=== PATIENT | female | born 2000 | race Caucasian/White ===

== ENCOUNTER 2019-11-26 15:23 | Emergency (ER) | payer BC, SELFPAY ==
[2019-11-26 15:43] VITALS: BP 114/78; PULSE 82; RESP 21; TEMP 36.9; O2SAT 98; BMI 36.1
--- NOTE | 2019-11-26 15:51 | HMH.EDUTC ---
[facility] [place] Disposition Clinical Impression: Sinusitis Qualifiers: Sinusitis location: unspecified location Chronicity: acute Recurrence: non-recurrent Qualified Code(s): J01.90 - Acute sinusitis, unspecified Disposition: Home, Self-Care Condition on Discharge: Good Instructions: Sinusitis Additional Instructions: Drink plenty of fluids. Take tylenol or ibuprofen for pain or fever. Take the medications as directed. Follow up with your regular doctor. GO TO THE ER FOR ANY WORSENING SYMPTOMS Prescriptions: Brompheniramine/Pseudoephed/Dm [Bromfed Dm Cough Syrup] 5 ml PO Q6HP PRN #240 syrup PRN Reason: Cough Transmission Status: Received by [facility] Azithromycin [Z-Allen 250mg Tab*] 250 mg PO UD DOSE PK #6 tab Transmission Status: Received by [facility] Referrals: Eda Vincent [Primary Care Provider] - Forms: Work/School Release Time of Disposition: 15:58 Medical Decision Making - Medical Records Medical records reviewed: No: I reviewed the patient's medical records. - Kwame Inquiry Pt receiving controlled substance: No Vital Signs: 11/26/19 15:43 11/26/19 16:05 Temperature 98.4 F 98.4 F Temperature Source Oral Pulse Rate 82 Pulse Rate [Left Brachial] 82 Respiratory Rate 21 21 Blood Pressure 114/78 Blood Pressure [Left Arm] 114/78 Blood Pressure Mean [Left Arm] 90 Blood Pressure Source [Left Arm] Automatic Cuff Blood Pressure Position [Left Arm] Sitting 02 Sat by Pulse Oximetry 98 Oxygen Delivery Method Room Air - Lab Data Lab results reviewed: Yes: I reviewed the patient's lab results. Lab Results 11/26/19 15:48: Influenza Type A Ag Negative, Influenza Type B Ag Negative 11/26/19 15:48: Strep Scn Rapid Clinic Negative Orders (Tests/Meds): ORDERS Category Date Time Status Strep Screen Confirmation Stat Micro 11/26/19 15:48 Received [facility] [place] HPI - General Stated complaint: sinus pressure Time Seen by Provider: 11/26/19 15:51 Mode of Arrival: Ambulatory Source of Information: Patient Limitations: No Limitations Description of Symptoms (Recalled from Triage Doc. by RN): PATIENT C/O COUGH WITH MUCOUS, SORE THROAT, HEADACHE, AND SINUS PAIN SINCE YESTERDAY; DENIES FEVER AND ANY KNOWN CONTACT WITH COVID HEENT Symptoms (Recalled from RN notes): Yes Resp Symptoms (Recalled from RN notes): Yes Skin Symptoms (Recalled from RN notes): No MS Symptoms (Recalled from RN notes): No Functional Status (Recalled from RN notes): WNL - History of Present Illness Provider Complaint: She c/o 2 days of worsening sinus congestion. She denies any fever. Her sinus drainage made her cough, so her work sent her here. - Related Data Home Medications Medication Instructions Recorded Confirmed Fluoxetine HCl 10 mg PO DAILY 11/26/19 11/26/19 Fluoxetine HCl 20 mg PO DAILY 11/26/19 11/26/19 Previous Rx's Medication Instructions Recorded Azithromycin [Z-Allen 250mg Tab*] 250 mg PO UD DOSE PK #6 tab 11/26/19 Brompheniramine/Pseudoephed/Dm 5 ml PO Q6HP PRN #240 syrup 11/26/19 [Bromfed Dm Cough Syrup] Allergies Allergy/AdvReac Type Severity Reaction Status Date / Time cefdinir [CEFDINIR] Allergy Intermediate Verified 11/26/19 15:48 - Worker's Comp Is this a Worker's Comp case?: No [facility] History - Hepatitis A Screen Drug use history?: No High risk sexual behaviors?: No History of sexually transmitted infection?: No Currently employed?: No Childcare worker?: No Do you have indoor plumbing?: Yes Do you have electricity?: Yes Attestation statement:: This patient has been screened for Hepatitis A risk factors. I have reviewed the patient's past medical history: Yes - Social History Alcohol Intake: current Occupational Status: employed ROS Obtained: Yes All systems reviewed & no additional complaints - Constitutional Constitutional: Denies chills, Denies fever(s), Reports poor appetite, Reports malaise - Eyes Eyes: Denies eye discharge - E
[2019-11-26 15:58] LABS: UTC Influenza A Antigen Negative (Negative); UTC Influenza B Antigen Negative (Negative); UTC Strep Screen (Rapid) Negative (Negative)
[2019-11-26 16:05] VITALS: BP 114/78; PULSE 82; RESP 21; TEMP 36.9; O2SAT 98
== END 2019-11-26 16:06 | disposition home or self-care (01) ==
PROVIDERS: Emergency Provider Nurse Practitioner Family; PCP Nurse Practitioner Family
DX: J01.90 Acute sinusitis, unspecified (principal)
CPT/HCPCS: 87804; 87880; 99202

== ENCOUNTER 2019-12-15 15:25 | Emergency (ER) | payer BC, SELFPAY ==
[2019-12-15 15:44] VITALS: BP 122/73; PULSE 66; RESP 21; TEMP 36.7; O2SAT 100; BMI 35.5
--- NOTE | 2019-12-15 15:47 | HMH.EDUTC ---
[facility] [place] Clinical Impression: Diarrhea Qualifiers: Diarrhea type: unspecified type Qualified Code(s): R19.7 - Diarrhea, unspecified Disposition: Home, Self-Care Condition on Discharge: Good Instructions: Diarrhea Additional Instructions: Return a stool sample so it can be checked for different infections. Follow up with your regular doctor. Drink plenty of fluids, water or gatorade would be best. GO TO THE ER FOR ANY WORSENING SYMPTOMS OR CONCERNS Referrals: Liliya Zhou APRN [Primary Care Provider] - Forms: Work/School Release Time of Disposition: 16:17 Medical Decision Making - Medical Records Medical records reviewed: No: I reviewed the patient's medical records. - Kwame Inquiry Pt receiving controlled substance: No Vital Signs: 12/15/19 15:44 12/15/19 16:21 Temperature 98.1 F 98.1 F Temperature Source Oral Pulse Rate 66 Pulse Rate [Left Brachial] 66 Respiratory Rate 21 21 Blood Pressure 122/73 Blood Pressure [Left Arm] 122/73 Blood Pressure Mean [Left Arm] 89 Blood Pressure Source [Left Arm] Automatic Cuff Blood Pressure Position [Left Arm] Sitting 02 Sat by Pulse Oximetry 100 Oxygen Delivery Method Room Air - Radiology Data #1 Image(s): Abdomen Image Reviewed: Yes I reviewed the patient's radiology image, Yes I have reviewed radiologist's interpretation Preliminary Findings: Normal/NAD PROCEDURE: XR KUB CLINICAL INDICATION: constipation, abdominal pain COMPARISON: No exams were available for comparison FINDINGS: Gas pattern-The bowel gas pattern is unremarkable. No obvious obstruction. Calcifications-No abnormal calcifications are evident. No obvious renal or ureteral calculi. Bones-No acute bony anomalies evident. IMPRESSION: Negative KUB Dictated by: Luis Smith MD 12/15/2019 16:28 Electronically signed by Luis Smith MD in [place] 12/15/2019 16:28 [facility] [place] HPI - General Stated complaint: diarrhea Time Seen by Provider: 12/15/19 15:47 - History of Present Illness Provider Complaint: She c/o diarrhea for the past 3 days. She was at work and had to keep going to the bathroom. She was constipated around 5 days ago and she was prescribed mag citrate by [facility]. She states that she drunk the mag citrate and then started having diarrhea. - Related Data Home Medications Medication Instructions Recorded Confirmed Fluoxetine HCl 20 mg PO DAILY 11/26/19 12/15/19 norethindrone-e.estradioL-iron 1 tab PO DAILY 12/15/19 12/15/19 [Junel Fe 1 mg-20 Mcg Tablet] Allergies Allergy/AdvReac Type Severity Reaction Status Date / Time cefdinir [CEFDINIR] Allergy Intermediate Verified 11/26/19 15:48 [facility] History - Hepatitis A Screen Attestation statement:: This patient has been screened for Hepatitis A risk factors. I have reviewed the patient's past medical history: Yes - Social History Alcohol Intake: current Occupational Status: employed ROS Obtained: No All systems reviewed & no additional complaints - Constitutional Constitutional: Denies chills, Denies fever(s), Denies poor appetite, Denies malaise - Eyes Eyes: Denies eye discharge - ENT Ears, Nose, Mouth, and Throat: Denies sore throat - Cardiovascular Cardiovascular: Denies chest pain - Respiratory Respiratory: No chest congestion, No cough - Gastrointestinal Gastrointestingal: Denies: as per HPI Physical Exam - General General appearance: alert, in no apparent distress - Head Head exam: atraumatic, normocephalic, normal inspection - Eye Eye exam: Present: normal appearance, PERRL, EOMI - ENT ENT exam: Present: normal exam, normal oropharynx, mucous membranes moist, TM's normal bilaterally, normal external ear exam - Neck Neck exam: Present: normal inspection, full ROM, trachea midline. Absent: meningismus, lymphadenopathy - Chest Chest inspection: Present: normal inspection, symmetric chest wall rise. Absen
--- NOTE | 2019-12-15 15:52 | XR_ITS ---
PROCEDURE: XR KUB CLINICAL INDICATION: constipation, abdominal pain COMPARISON: No exams were available for comparison FINDINGS: Gas pattern-The bowel gas pattern is unremarkable. No obvious obstruction. Calcifications-No abnormal calcifications are evident. No obvious renal or ureteral calculi. Bones-No acute bony anomalies evident. IMPRESSION: Negative KUB Dictated by: Luis Smith MD 12/15/2019 16:28 Electronically signed by Luis Smith MD in [place] 12/15/2019 16:28
[2019-12-15 16:21] VITALS: BP 122/73; PULSE 66; RESP 21; TEMP 36.7; O2SAT 100
== END 2019-12-15 16:22 | disposition home or self-care (01) ==
PROVIDERS: Emergency Provider Nurse Practitioner Family; PCP Nurse Practitioner Family
DX: R19.7 Diarrhea, unspecified (principal)
CPT/HCPCS: 74018; 99201

== ENCOUNTER 2020-01-24 18:47 | Emergency (ER) | payer BC, SELFPAY ==
[2020-01-24 19:04] VITALS: BP 136/88; PULSE 95; RESP 20; TEMP 36.6; O2SAT 100; BMI 34.0
--- NOTE | 2020-01-24 19:22 | HMH.EDUTC ---
[facility] [place] Disposition Clinical Impression: Sciatica Qualifiers: Laterality: left Qualified Code(s): M54.32 - Sciatica, left side Disposition: Home, Self-Care Condition on Discharge: Good Instructions: Sciatica (Alternative Therapy), Sciatica, DI for Sciatica, Methocarbamol, Etodolac Additional Instructions: Take medication as prescribed *Etodolac every 6 hours with meal as needed for pain/inflammation *Remember you had a Toradol shot in the clinic today, which is similar to Motrin and Etodolac do not take any of these until tomorrow *Not additional anti-inflammatory like motrin, aleve, advil Ibuprofen with the above amount of Etodolac. You can still take Tylenol every 4 hours as needed if you need something else for pain *Ice 20 minutes every 2 hours for the first 48 hours after the initial injury followed by moist heat every 20 minutes 3-4 times a day to affected area *Muscle relaxer as prescribed as needed for muscle spasms but remember, it WILL cause drowsiness You cannot take it and drive, operate machinery or care for small children. *Keep this area active, no movement leads to more stiffness, However take it easy and avoid heavy lifting pushing or pulling *Follow up with you family doctor if no improvement for further treatment Return if needed Straight to ER if any life threatening symptoms Prescriptions: Etodolac [Etodolac 200mg Cap*] 200 mg PO Q8H PRN #12 cap PRN Reason: Moderate Pain Transmission Status: Received by [id number] methocarbamoL [Methocarbamol 500mg Tablet] 500 mg PO BID PRN #10 tab PRN Reason: Muscle Spasm Transmission Status: Received by [id number] Referrals: Liliya Zhou APRN [Primary Care Provider] - As needed Forms: Work/School Release Time of Disposition: 19:59 Medical Decision Making - Kwame Inquiry Pt receiving controlled substance: No Kwame was queried for this patient: No Vital Signs: 01/24/20 19:04 Temperature 97.9 F Temperature Source Oral Pulse Rate [Right Brachial] 95 H Respiratory Rate 20 Blood Pressure [Right Arm] 136/88 Blood Pressure Mean [Right Arm] 104 Blood Pressure Source [Right Arm] Automatic Cuff Blood Pressure Position [Right Arm] Sitting 02 Sat by Pulse Oximetry 100 Oxygen Delivery Method Room Air Orders (Tests/Meds): ED MEDICATIONS Discontinued Medications Generic Name Dose Route Start Last Admin Trade Name Fernie PRN Reason Stop Dose Admin Ketorolac Tromethamine 60 mg 01/24/20 19:24 01/24/20 19:40 Toradol 60mg/2ml Vial IM 01/24/20 19:25 60 mg ONCE ONE Administration Methylprednisolone Sodium Succinate 125 mg 01/24/20 19:24 01/24/20 19:40 Solu-Medrol 125mg/2ml Vial IM 01/24/20 19:25 125 mg ONCE ONE Administration - Reevaluation(s) Time: 19:28 Reevaluation #1: Recommended urine and patient declined/refused states that she is not and recently took test and just got off her monthly [facility] [place] HPI - General Stated complaint: Pain in hip Time Seen by Provider: 01/24/20 19:24 Mode of Arrival: Ambulatory Source of Information: Patient Limitations: No Limitations Description of Symptoms (Recalled from Triage Doc. by RN): PATIENT C/O PAIN TO LEFT HIP THAT RADIATES TO HER KNEE X 2 WEEKS. SHE STATES THE PAIN IS CONSTANT, BUT IS WORSE WITH LYING DOWN AND STANDING. NO KNOWN INJURY HEENT Symptoms (Recalled from RN notes): No Resp Symptoms (Recalled from RN notes): No Skin Symptoms (Recalled from RN notes): No MS Symptoms (Recalled from RN notes): Yes Functional Status (Recalled from RN notes): WNL - History of Present Illness Provider Complaint: Patient states that she thought she pulled a muscle in her lower back/left hip about 2 weeks ago and was having pain at times with walking and lifting her leg State that it has continued to get worse now radiating throught left buttock area into left upper leg States that she hasnt done anything that she is aware of to hurt it but wanted t
[2020-01-24 19:52] VITALS: BP 136/88; PULSE 95; RESP 20; TEMP 36.6; O2SAT 100
== END 2020-01-24 19:55 | disposition home or self-care (01) ==
PROVIDERS: Emergency Provider Nurse Practitioner; PCP Nurse Practitioner Family
DX: M54.32 Sciatica, left side (principal)
CPT/HCPCS: 96372; 99201

== ENCOUNTER 2020-02-23 15:03 | Emergency (ER) | payer BC, SELFPAY ==
--- NOTE | 2020-02-23 15:21 | HMH.EDUTC ---
[facility] [place] Disposition Clinical Impression: Sinusitis Qualifiers: Sinusitis location: unspecified location Chronicity: acute Recurrence: non-recurrent Qualified Code(s): J01.90 - Acute sinusitis, unspecified Disposition: Home, Self-Care Condition on Discharge: Good Instructions: Sinusitis, DI for Sinusitis Additional Instructions: Drink plenty of fluids. Take tylenol or ibuprofen for pain or fever. Take the medications as directed. Follow up with your regular doctor. GO TO THE ER FOR ANY WORSENING SYMPTOMS Prescriptions: methylPREDNISolone [Medrol] 4 mg PO DIRECTED 6 Days #21 tab.ds.pk Transmission Status: Received by [facility] Benzonatate [Tessalon Perle 100mg Cap] 100 mg PO TIDP PRN #30 cap PRN Reason: Cough Transmission Status: Received by [facility] Azithromycin [Z-Allen 250mg Tab*] 250 mg PO UD DOSE PK #6 tab Transmission Status: Received by [facility] Referrals: Liliya Zhou APRN [Primary Care Provider] - Forms: Work/School Release Time of Disposition: 15:45 Medical Decision Making - Medical Records Medical records reviewed: No: I reviewed the patient's medical records. - Kwame Inquiry Pt receiving controlled substance: No Vital Signs: 02/23/20 15:22 02/23/20 15:45 Temperature 97.8 F 97.8 F Temperature Source Oral Pulse Rate 87 Pulse Rate [Left Brachial] 87 Respiratory Rate 19 19 Blood Pressure 112/76 Blood Pressure [Left Arm] 112/76 Blood Pressure Mean [Left Arm] 88 Blood Pressure Source [Left Arm] Automatic Cuff Blood Pressure Position [Left Arm] Sitting 02 Sat by Pulse Oximetry 100 Oxygen Delivery Method Room Air Orders (Tests/Meds): ORDERS Category Date Time Status SARS-CoV-2, TIFFANI Stat Lab 02/23/20 15:40 Received [facility] [place] HPI - General Stated complaint: SOB,Sinus Time Seen by Provider: 02/23/20 15:21 - History of Present Illness Provider Complaint: She c/o 2 days of sinus congestion, chest congestion, and cough. 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 - Related Data Home Medications Medication Instructions Recorded Confirmed Fluoxetine HCl 20 mg PO DAILY 11/26/19 01/24/20 norethindrone-e.estradioL-iron 1 tab PO DAILY 12/15/19 01/24/20 [Junel Fe 1 mg-20 Mcg Tablet] hydrOXYzine pamoate [Vistaril 25mg 25 mg PO Q8H PRN 01/24/20 01/24/20 capsule] Previous Rx's Medication Instructions Recorded Etodolac [Etodolac 200mg Cap*] 200 mg PO Q8H PRN #12 cap 01/24/20 methocarbamoL [Methocarbamol 500mg 500 mg PO BID PRN #10 tab 01/24/20 Tablet] Azithromycin [Z-Allen 250mg Tab*] 250 mg PO UD DOSE PK #6 tab 02/23/20 Benzonatate [Tessalon Perle 100mg 100 mg PO TIDP PRN #30 cap 02/23/20 Cap] methylPREDNISolone [Medrol] 4 mg PO DIRECTED 6 Days #21 02/23/20 tab.ds.pk Allergies Allergy/AdvReac Type Severity Reaction Status Date / Time cefdinir [CEFDINIR] Allergy Intermediate Verified 11/26/19 15:48 [facility] History - Hepatitis A Screen Attestation statement:: This patient has been screened for Hepatitis A risk factors. I have reviewed the patient's past medical history: Yes - Social History Alcohol Intake: current Occupational Status: other ROS Obtained: Yes All systems reviewed & no additional complaints - Constitutional Constitutional: Denies chills, Denies fever(s), Reports poor appetite, Reports malaise - Eyes Eyes: Denies eye discharge - ENT Ears, Nose, Mouth, and Throat: Reports as per HPI - Cardiovascular Cardiovascular: Denies chest pain - Respiratory Respiratory: No chest congestion, Yes cough, No dyspnea, No coughing up blood, No stridor, No wheezing Physical Exam - General General appearance: alert, in no apparent distress - Head Head exam: atraumatic, normocephalic, normal inspection - Eye Eye exam: Present: normal appearance, PERRL, EOMI - ENT ENT exam: Present: normal exam, normal oropharynx, mucous
[2020-02-23 15:22] VITALS: BP 112/76; PULSE 87; RESP 19; TEMP 36.6; O2SAT 100; BMI 33.6
[2020-02-23 15:45] VITALS: BP 112/76; PULSE 87; RESP 19; TEMP 36.6; O2SAT 100
[2020-02-25 14:27] LABS: Covid-19 Nasal PCR Sendout Lex Not Detected
== END 2020-02-23 15:49 | disposition home or self-care (01) ==
PROVIDERS: Emergency Provider Nurse Practitioner Family; PCP Nurse Practitioner Family
DX: J01.90 Acute sinusitis, unspecified (principal); Z20.828 Contact with and (suspected) exposure to other viral communicable diseases
CPT/HCPCS: 99201; U0004

== ENCOUNTER 2020-04-18 20:52 | Emergency (ER) | payer BC, SELFPAY ==
[2020-04-18 21:29] VITALS: BP 128/76; PULSE 71; RESP 17; TEMP 36.8; O2SAT 99; BMI 33.2
--- NOTE | 2020-04-18 21:33 | HMH.EDUTC ---
[facility] [place] Disposition Clinical Impression: Exposure to COVID-19 virus Sinusitis Qualifiers: Sinusitis location: unspecified location Chronicity: acute Recurrence: non-recurrent Qualified Code(s): J01.90 - Acute sinusitis, unspecified Disposition: Home, Self-Care Condition on Discharge: Good Instructions: Sinusitis, DI for Sinusitis, Preventing the Spread of Coronavirus Discharge Instructions Additional Instructions: Drink plenty of fluids. Take tylenol or ibuprofen for pain or fever. Take the medications as directed. Follow up with your regular doctor. GO TO THE ER FOR ANY WORSENING SYMPTOMS FOLLOW THE DIRECTIONS ON THE COVID-19 HAND OUT THAT WE GAVE YOU REGARDING SELF-ISOLATION UNTIL YOU KNOW YOUR COVID-19 RESULTS Referrals: Liliya Zhou APRN [Primary Care Provider] - Forms: Work/School Release Time of Disposition: 21:41 Medical Decision Making - Medical Records Medical records reviewed: No: I reviewed the patient's medical records. - Kwame Inquiry Pt receiving controlled substance: No Vital Signs: 04/18/20 21:29 04/18/20 21:45 Temperature 98.3 F 98.3 F Temperature Source Oral Pulse Rate 71 Pulse Rate [Left] 71 Respiratory Rate 17 17 Blood Pressure 128/76 Blood Pressure [Right Arm] 128/76 Blood Pressure Mean [Right Arm] 93 Blood Pressure Source [Right Arm] Automatic Cuff Blood Pressure Position [Right Arm] Sitting 02 Sat by Pulse Oximetry 99 Oxygen Delivery Method Room Air - Lab Data Lab results reviewed: Yes: I reviewed the patient's lab results. Orders (Tests/Meds): ORDERS Category Date Time Status Covid-19 Nasal PCR Sendout David Routine Lab 04/18/20 21:10 Received [facility] [place] HPI - General Stated complaint: sore throat, wants COVID Testing Time Seen by Provider: 04/18/20 21:33 - History of Present Illness Provider Complaint: She states that both her mother and father have COVID-19 at this time. She was around them both a few days ago before they developed symptoms. She denies any complaints except that she has had sinus pressure and drainage for the past 2 weeks or so. - Related Data Home Medications Medication Instructions Recorded Confirmed norethindrone-e.estradioL-iron 1 tab PO DAILY 12/15/19 01/24/20 [Junel Fe 1 mg-20 Mcg Tablet] hydrOXYzine pamoate [Vistaril 25mg 25 mg PO Q8H PRN 01/24/20 01/24/20 capsule] Fluoxetine HCl 30 mg PO DAILY 04/18/20 04/18/20 Allergies Allergy/AdvReac Type Severity Reaction Status Date / Time cefdinir [CEFDINIR] Allergy Intermediate Verified 11/26/19 15:48 amoxicillin Allergy Verified 04/18/20 21:38 [facility] History - Hepatitis A Screen Attestation statement:: This patient has been screened for Hepatitis A risk factors. I have reviewed the patient's past medical history: Yes - Social History Alcohol Intake: never Occupational Status: other ROS Obtained: Yes All systems reviewed & no additional complaints - Constitutional Constitutional: Reports chills, Reports fever(s), Reports poor appetite, Reports malaise - Eyes Eyes: Denies eye discharge - ENT Ears, Nose, Mouth, and Throat: Denies sore throat - Cardiovascular Cardiovascular: Denies chest pain - Respiratory Respiratory: Yes chest congestion, Yes cough Physical Exam - General General appearance: alert, in no apparent distress - Head Head exam: atraumatic, normocephalic, normal inspection - Eye Eye exam: Present: normal appearance, PERRL, EOMI - ENT ENT exam: Present: normal exam, normal oropharynx, mucous membranes moist, TM's normal bilaterally, normal external ear exam - Neck Neck exam: Present: normal inspection, full ROM, trachea midline. Absent: meningismus, lymphadenopathy - Chest Chest inspection: Present: normal inspection, symmetric chest wall rise. Absent: tenderness - Respiratory Respiratory exam: Present: normal lung sounds bilaterally. Absent: respiratory distress - Cardiovascular Ca
[2020-04-18 21:45] VITALS: BP 128/76; PULSE 71; RESP 17; TEMP 36.8; O2SAT 99
[2020-04-20 13:27] LABS: Covid-19 Nasal PCR Sendout Lex NOT DETECTED
== END 2020-04-18 21:46 | disposition home or self-care (01) ==
PROVIDERS: Emergency Provider Nurse Practitioner Family; PCP Nurse Practitioner Family
DX: Z20.828 Contact with and (suspected) exposure to other viral communicable diseases (principal); J01.90 Acute sinusitis, unspecified
CPT/HCPCS: 99201; U0004

== ENCOUNTER 2020-05-22 13:30 | Emergency (ER) | payer BC, SELFPAY ==
[2020-05-22 13:43] VITALS: BP 115/61; PULSE 80; RESP 21; TEMP 36.9; O2SAT 99; BMI 33.0
[2020-05-22 13:57] LABS: UTC Strep Screen (Rapid) Negative (Negative)
[2020-05-22 13:57] LABS: UTC Pregnancy Test, Urine Negative (Negative)
--- NOTE | 2020-05-22 14:20 | HMH.EDUTC ---
[facility] [place] Disposition Clinical Impression: Exposure to COVID-19 virus Pharyngitis Qualifiers: Pharyngitis/tonsillitis etiology: unspecified etiology Qualified Code(s): J02.9 - Acute pharyngitis, unspecified Disposition: Home, Self-Care Condition on Discharge: Good Instructions: DI for Pharyngitis/Tonsillopharyngitis -- Adult, Preventing the Spread of Coronavirus Discharge Instructions Additional Instructions: Drink plenty of fluids. Take tylenol or ibuprofen for pain or fever. Take the medications as directed. Follow up with your regular doctor. GO TO THE ER FOR ANY WORSENING SYMPTOMS Prescriptions: Brompheniramine/Pseudoephed/Dm [Bromfed Dm Cough Syrup] 5 ml PO Q6HP PRN #240 syrup PRN Reason: Cough Transmission Status: Received by [facility] Ondansetron [Zofran 4mg ODT] 4 mg PO Q8HP PRN #10 tab.rapdis PRN Reason: Nausea Transmission Status: Received by [facility] Azithromycin [Z-Allen 250mg Tab*] 250 mg PO UD DOSE PK #6 tab Transmission Status: Received by [facility] Referrals: Liliya Zhou APRN [Primary Care Provider] - Forms: Work/School Release Time of Disposition: 14:24 Medical Decision Making - Medical Records Medical records reviewed: No: I reviewed the patient's medical records. - Kwame Inquiry Pt receiving controlled substance: No Vital Signs: 05/22/20 13:43 05/22/20 14:33 Temperature 98.4 F 98.4 F Temperature Source Oral Pulse Rate 80 Pulse Rate [Right Brachial] 80 Respiratory Rate 21 21 Blood Pressure 115/61 Blood Pressure [Right Arm] 115/61 Blood Pressure Mean [Right Arm] 79 Blood Pressure Source [Right Arm] Automatic Cuff Blood Pressure Position [Right Arm] Sitting 02 Sat by Pulse Oximetry 99 Oxygen Delivery Method Room Air - Lab Data Lab results reviewed: Yes: I reviewed the patient's lab results. Lab Results 05/22/20 13:39: Strep Scn Rapid Clinic Negative 05/22/20 13:48: [facility]st Clinic Negative Orders (Tests/Meds): ORDERS Category Date Time Status Strep Screen Confirmation Stat Micro 05/22/20 13:39 Received [facility] [place] HPI - General Stated complaint: sinus pain, sore throat, vomiting Time Seen by Provider: 05/22/20 13:50 Mode of Arrival: Ambulatory Source of Information: Patient Limitations: No Limitations Description of Symptoms (Recalled from Triage Doc. by RN): PATIENT C/O SORE THROAT, CONGESTION, AND VOMITING SINCE THIS MORNING HEENT Symptoms (Recalled from RN notes): Yes Resp Symptoms (Recalled from RN notes): No Skin Symptoms (Recalled from RN notes): No MS Symptoms (Recalled from RN notes): No Functional Status (Recalled from RN notes): WNL - History of Present Illness Provider Complaint: She c/o 3 days of sinus congestion, sore throat and cough. Her mother has covid at this time, so she has been exposed. - Related Data Home Medications Medication Instructions Recorded Confirmed norethindrone-e.estradioL-iron 1 tab PO DAILY 12/15/19 05/22/20 [Junel Fe 1 mg-20 Mcg Tablet] hydrOXYzine pamoate [Vistaril 25mg 25 mg PO Q8H PRN 01/24/20 05/22/20 capsule] Fluoxetine HCl 30 mg PO DAILY 04/18/20 05/22/20 Previous Rx's Medication Instructions Recorded Azithromycin [Z-Allen 250mg Tab*] 250 mg PO UD DOSE PK #6 tab 05/22/20 Brompheniramine/Pseudoephed/Dm 5 ml PO Q6HP PRN #240 syrup 05/22/20 [Bromfed Dm Cough Syrup] Ondansetron [Zofran 4mg ODT] 4 mg PO Q8HP PRN #10 tab.rapdis 05/22/20 Allergies Allergy/AdvReac Type Severity Reaction Status Date / Time cefdinir [CEFDINIR] Allergy Intermediate Verified 11/26/19 15:48 amoxicillin Allergy Verified 04/18/20 21:38 - Worker's Comp Is this a Worker's Comp case?: No [facility] History - Hepatitis A Screen Drug use history?: No High risk sexual behaviors?: No History of sexually transmitted infection?: No Currently employed?: No Childcare worker?: No Do you have indoor plumbing?: Yes Do you have electricity?: Yes Attestatio
[2020-05-22 14:33] VITALS: BP 115/61; PULSE 80; RESP 21; TEMP 36.9; O2SAT 99
== END 2020-05-22 14:38 | disposition home or self-care (01) ==
PROVIDERS: Emergency Provider Nurse Practitioner Family; PCP Nurse Practitioner Family
DX: Z20.828 Contact with and (suspected) exposure to other viral communicable diseases (principal); J02.9 Acute pharyngitis, unspecified; F17.210 Nicotine dependence, cigarettes, uncomplicated; Z88.1 Allergy status to other antibiotic agents
CPT/HCPCS: 81025; 87880; 99202; U0003

== ENCOUNTER 2020-05-26 10:12 | Emergency (ER) | payer BC, SELFPAY ==
[2020-05-26 10:44] VITALS: BP 131/78; PULSE 100; RESP 14; TEMP 37; O2SAT 99; BMI 33.0
[2020-05-26 10:54] LABS: UTC Strep Screen (Rapid) Negative (Negative)
--- NOTE | 2020-05-26 11:03 | HMH.EDUTC ---
[facility] [place] Dis[place] Clinical Impression: Upper respiratory infection, viral Disposition: Home, Self-Care Condition on Discharge: Good Instructions: DI for Viral Upper Respiratory Infection -- Adult Additional Instructions: No sign of a bacterial infection. Likely viral. Viruses can take 7-14 days to run their course. Nasal saline and bulb syringe or nose Varsha to remove nasal drainage to help with nasal congestion. Hard to eat, drink, sleep with nasal congestion so important to keep this cleaned out. Monitor temp. Tylenol or Motrin as needed for pain or fever Encourage fluids, water, Gatorade, Powerade, Pedialyte if /toddler/child Warm salt water gargles Warm fluids Sore throat lozenges Sleep elevated Humidifier/vaporizer Your throat swab was sent for culture. These results are typically sent to the primary care. Be sure you follow-up in 2-3 days if no improvement so we can review the results and treat if necessary if you do not have a primary care, I recommend to get 1 but in the meantime, call for results. Follow-up immediately for new or worsening symptoms or no noticeable improvement over the next 48-72 hours. Prescriptions: Fluticasone Propionate [Flonase 50mcg nasal spray 16gm] 1 spr NS DAILY 14 Days #1 bottle Prescription Printed Referrals: Liliya Zhou APRN [Primary Care Provider] - Time of Disposition: 11:12 Medical Decision Making - Kwame Inquiry Pt receiving controlled substance: No Vital Signs: 05/26/20 10:44 Temperature 98.6 F Temperature Source Oral Pulse Rate [Right Brachial] 100 H Respiratory Rate 14 Blood Pressure [Right Arm] 131/78 Blood Pressure Mean [Right Arm] 95 Blood Pressure Source [Right Arm] Automatic Cuff Blood Pressure Position [Right Arm] Sitting 02 Sat by Pulse Oximetry 99 Oxygen Delivery Method Room Air - Lab Data Lab Results 05/26/20 10:37: Strep Scn Rapid Clinic Negative Orders (Tests/Meds): ORDERS Category Date Time Status Strep Screen Confirmation Stat Micro 05/26/20 10:37 Received [facility] [place] HPI - General Chief complaint: Urgent [facility] Stated complaint: sore throat cough Time Seen by Provider: 05/26/20 11:03 Mode of Arrival: Ambulatory Source of Information: Patient Limitations: No Limitations Description of Symptoms (Recalled from Triage Doc. by RN): PATIENT C/O SORE THROAT, VOMITING, FEVER, HEAD ACHE X 1-2 WEEKS HEENT Symptoms (Recalled from RN notes): Yes Resp Symptoms (Recalled from RN notes): No Skin Symptoms (Recalled from RN notes): No MS Symptoms (Recalled from RN notes): No Functional Status (Recalled from RN notes): WNL - History of Present Illness Provider Complaint: 19 yr old female presents for sore throat, clear nasal drainage, sinsu pressure and nausea. Pt states she had a fever earlier in the the week but no fever since then. - Related Data Home Medications Medication Instructions Recorded Confirmed Fluoxetine HCl 30 mg PO DAILY 04/18/20 05/26/20 norethindrone-e.estradioL-iron 1 tab PO DAILY 05/26/20 05/26/20 [Junel Fe 1 mg-20 Mcg Tablet] Previous Rx's Medication Instructions Recorded Fluticasone Propionate [Flonase 1 spr NS DAILY 14 Days #1 bottle 05/26/20 50mcg nasal spray 16gm] Allergies Allergy/AdvReac Type Severity Reaction Status Date / Time cefdinir [CEFDINIR] Allergy Intermediate Verified 11/26/19 15:48 amoxicillin Allergy Verified 04/18/20 21:38 - Worker's Comp Is this a Worker's Comp case?: No [facility] History - Hepatitis A Screen Drug use history?: No High risk sexual behaviors?: No History of sexually transmitted infection?: No Currently employed?: No Childcare worker?: No Do you have indoor plumbing?: Yes Do you have electricity?: Yes Attestation statement:: This patient has been screened for Hepatitis A risk factors. I have reviewed the patient's past medical history: Yes Medical History: Denies:: Cancer, Diabetes Mellitus Type 1, Diabetes Melli
[2020-05-26 11:13] VITALS: BP 131/78; PULSE 100; RESP 14; TEMP 37; O2SAT 99
== END 2020-05-26 11:22 | disposition home or self-care (01) ==
PROVIDERS: Emergency Provider Nurse Practitioner Family; PCP Nurse Practitioner Family
DX: J06.9 Acute upper respiratory infection, unspecified (principal); F17.210 Nicotine dependence, cigarettes, uncomplicated; Z88.1 Allergy status to other antibiotic agents
CPT/HCPCS: 87880; 99201

== ENCOUNTER 2020-06-20 16:14 | Emergency (ER) | payer BC, SELFPAY ==
[2020-06-20 16:30] VITALS: BP 119/84; PULSE 71; RESP 21; TEMP 36.9; O2SAT 99; BMI 33.2
--- NOTE | 2020-06-20 16:47 | HMH.EDUTC ---
[facility] [place] Disposition Clinical Impression: Sore throat (viral) Diarrhea Qualifiers: Diarrhea type: unspecified type Qualified Code(s): R19.7 - Diarrhea, unspecified Disposition: Home, Self-Care Condition on Discharge: Good Instructions: DI for Viral Upper Respiratory Infection -- Adult, Diarrhea, Preventing the Spread of Coronavirus Discharge Instructions Additional Instructions: ? Avoid fruit juices, as these do not replace minerals and can actually increase diarrhea. ? Children and adults can use sports drinks to replenish electrolytes. Younger children and infants should use products formulated for children, like oral rehydration solutions. ? Eat food in small amounts and let your stomach recover. ? Get lots of rest. You may feel tired or weak. ? No greasy or fried foods for the next 24-48 hours BRAT diet Bananas Rice Apples and [place] ? Make sure to drink plenty of liquids ? Return if needed ? Straight to ER if any life threatening symptoms ? Zofran as prescribed ? You was given an outpatient order for diarrhea panel, please collect specimen and bring back to outpatient lab then call back to the [facility] or follow up with family doctor for results ? Follow up with family doctor in the next 48-72 hours if no improvement or any worsening of symptoms You was tested for today for COVID19 your test result should be back later tomorrow or Thursday, you may call back later tomorrow to see if your test results are back and the result You was given a handout with instructions for Self Quarantine and Self isolation for while you wait on test results and what to do if they are positive Prescriptions: Ondansetron [Zofran 4mg ODT] 4 mg PO TIDP PRN #8 tab PRN Reason: Nausea Transmission Status: Pending to [facility] Referrals: Liliya Zhou APRN [Primary Care Provider] - As needed Forms: Work/School Release Time of Disposition: 16:57 Medical Decision Making - Kwame Inquiry Pt receiving controlled substance: No Kwame was queried for this patient: No Vital Signs: 06/20/20 16:30 Temperature 98.4 F Temperature Source Oral Pulse Rate [Radial] 71 Respiratory Rate 21 Blood Pressure [Right Arm] 119/84 Blood Pressure Mean [Right Arm] 95 Blood Pressure Source [Right Arm] Automatic Cuff Blood Pressure Position [Right Arm] Sitting 02 Sat by Pulse Oximetry 99 Oxygen Delivery Method Room Air Orders (Tests/Meds): ORDERS Category Date Time Status Covid-19 Nasal PCR Sendout [facility] 06/20/20 16:26 Ordered [facility] [place] HPI - General Stated complaint: cold symptoms, nausea, diarrhea Time Seen by Provider: 06/20/20 16:47 Mode of Arrival: Ambulatory Source of Information: Patient Limitations: No Limitations Description of Symptoms (Recalled from Triage Doc. 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 have tested positive for COVID and she was worried and wanted to get tested - Related Data Home Medications Medication Instructions Recorded Confirmed Fluoxetine HCl 30 mg PO DAILY 04/18/20 05/26/20 norethindrone-e.estradioL-iron 1 tab PO DAILY 05/26/20 05/26/20 [Junel Fe 1 mg-20 Mcg Tablet] Previous Rx's Medication Instructions Recorded Fluticasone Propionate [Flonase 1 spr NS DAILY 14 Days #1 bottle 05/26/20 50mcg nasal spray 16gm] Ondansetron [Zofran 4mg ODT] 4 mg PO TIDP PRN #8 tab 06/20/20 Allergies Allergy/AdvReac Type Severity Reaction Status Date / Time cefdinir [CEFDINIR] Allergy Intermediate Verified 11/26/19 15:48 amox
[2020-06-20 17:07] VITALS: BP 119/84; PULSE 71; RESP 21; TEMP 36.9; O2SAT 99
[2020-06-22 14:11] LABS: Covid-19 Nasal PCR Sendout Lex NOT DETECTED
== END 2020-06-20 17:08 | disposition home or self-care (01) ==
PROVIDERS: Emergency Provider Nurse Practitioner; PCP Nurse Practitioner Family
DX: Z20.828 Contact with and (suspected) exposure to other viral communicable diseases (principal); J02.9 Acute pharyngitis, unspecified; F17.210 Nicotine dependence, cigarettes, uncomplicated
CPT/HCPCS: 99201; U0004

== ENCOUNTER → 2020-06-21 18:03 | Outpatient (CLI) | payer BC, SELFPAY ==
[2020-06-21 18:05] LABS: Adenovirus F 40/41, stool Not Detected (NotDetected); Astrovirus Not Detected (NotDetected); Campylobacter Not Detected (NotDetected); Clostridium Difficile A/B, PCR Not Detected (NotDetected); Cryptosporidium Not Detected (NotDetected); Cyclospora Cayetanesis Not Detected (NotDetected); Entamoeba histolytica Not Detected (NotDetected); Enteroaggregative E coli Not Detected (NotDetected); Enteropathogenic E coli Not Detected (NotDetected); Enterotoxigenic E coli Not Detected (NotDetected); Giardia lamblia Not Detected (NotDetected); Norovirus Not Detected (NotDetected); Plesimonas Shigalloides, PCR Not Detected (NotDetected); Rotavirus A Not Detected (NotDetected); Sapovirus Not Detected (NotDetected); Shiga-like toxin E coli Not Detected (NotDetected); Shigella Enterovasive E coli Not Detected (NotDetected); Vibrio Cholerae Not Detected (NotDetected); Vibrio, PCR Not Detected (NotDetected); Yersinia Entercolitica, PCR Not Detected (NotDetected)
[2020-06-25 10:45] LABS: Salmonella, PCR Detected (NotDetected)
== END ==
LOC: LAB 18:03
PROVIDERS: Visit Provider Nurse Practitioner
DX: R19.7 Diarrhea, unspecified (principal); A02.9 Salmonella infection, unspecified
CPT/HCPCS: 87507

== ENCOUNTER 2020-08-04 09:00 | Emergency (ER) | payer BC, SELFPAY ==
[2020-08-04 09:05] VITALS: BP 108/74; PULSE 62; RESP 15; TEMP 37.3; O2SAT 99; BMI 34.0
--- NOTE | 2020-08-04 09:30 | HMH.EDUTC ---
[facility] [place] Disposition Clinical Impression: Viral syndrome, Exposure to COVID-19 virus, Bronchitis Disposition: Home, Self-Care Condition on Discharge: Good Instructions: DI for Acute Bronchitis, DI for COVID-19 (Suspected or Confirmed ), Preventing the Spread of Coronavirus Discharge Instructions Additional Instructions: Drink plenty of fluids. Take tylenol for pain or fever. Return if you begin to have difficulty breathing. Follow up with your regular doctor. GO TO THE ER FOR ANY WORSENING SYMPTOMS Prescriptions: Ondansetron [Zofran 4mg ODT] 4 mg PO Q8HP PRN #12 tab.rapdis PRN Reason: Nausea Transmission Status: Received by [facility] Azithromycin [Z-Allen 250mg Tab*] 250 mg PO UD DOSE PK #6 tab Transmission Status: Received by [facility] Referrals: Liliya Zhou APRN [Primary Care Provider] - Forms: Work/School Release Time of Disposition: 09:35 Medical Decision Making - Medical Records Medical records reviewed: No: I reviewed the patient's medical records. - Kwame Inquiry Pt receiving controlled substance: No Vital Signs: 08/04/20 09:05 08/04/20 09:38 Temperature 99.2 F 99.2 F Temperature Source Oral Pulse Rate 62 Pulse Rate [Right Brachial] 62 Respiratory Rate 15 15 Blood Pressure 108/74 L Blood Pressure [Right Arm] 108/74 L Blood Pressure Mean [Right Arm] 85 Blood Pressure Source [Right Arm] Automatic Cuff Blood Pressure Position [Right Arm] Sitting 02 Sat by Pulse Oximetry 99 Oxygen Delivery Method Room Air - Lab Data Lab Results 08/04/20 09:10: SARS-CoV-2 (PCR) Not detected [facility] [place] HPI - General Stated complaint: sore throat, cough, drainage Time Seen by Provider: 08/04/20 09:30 Mode of Arrival: Ambulatory Source of Information: Patient Limitations: No Limitations Description of Symptoms (Recalled from Triage Doc. by RN): PATIENT C/O SORE THROAT, COUGH, CONGESTION, NAUSEA, AND HEADACHE THAT STARTED THURSDAY HEENT Symptoms (Recalled from RN notes): Yes Resp Symptoms (Recalled from RN notes): Yes Skin Symptoms (Recalled from RN notes): No MS Symptoms (Recalled from RN notes): No Functional Status (Recalled from RN notes): WNL - History of Present Illness Provider Complaint: She states that for the past 3 days she has ran a fever, had body aches, sore throat and a cough. - Related Data Home Medications Medication Instructions Recorded Confirmed Fluoxetine HCl 30 mg PO DAILY 04/18/20 05/26/20 norethindrone-e.estradioL-iron 1 tab PO DAILY 05/26/20 05/26/20 [Junel Fe 1 mg-20 Mcg Tablet] Previous Rx's Medication Instructions Recorded Fluticasone Propionate [Flonase 1 spr NS DAILY 14 Days #1 bottle 05/26/20 50mcg nasal spray 16gm] Ondansetron [Zofran 4mg ODT] 4 mg PO TIDP PRN #8 tab 06/20/20 Ciprofloxacin HCl [Cipro 500mg 500 mg PO BID 7 Days #14 tab 06/25/20 Tab] Azithromycin [Z-Allen 250mg Tab*] 250 mg PO UD DOSE PK #6 tab 08/04/20 Ondansetron [Zofran 4mg ODT] 4 mg PO Q8HP PRN #12 tab.rapdis 08/04/20 Allergies Allergy/AdvReac Type Severity Reaction Status Date / Time cefdinir [CEFDINIR] Allergy Intermediate Verified 11/26/19 15:48 amoxicillin Allergy Verified 04/18/20 21:38 - Worker's Comp Is this a Worker's Comp case?: No [facility] History - Hepatitis A Screen Drug use history?: No High risk sexual behaviors?: No History of sexually transmitted infection?: No Currently employed?: No Childcare worker?: No Do you have indoor plumbing?: Yes Do you have electricity?: Yes Attestation statement:: This patient has been screened for Hepatitis A risk factors. I have reviewed the patient's past medical history: Yes Medical History: Denies:: Cancer, Diabetes Mellitus Type 1, Diabetes Mellitus Type 2, Internal Pacemaker, MRSA Other Surgeries: No: Pacemaker Amputation: No Fractures: No - Social History Smoking Status: Current every day smoker # Packs/Day (cigarettes): 1 Alcohol Intake: shira
[2020-08-04 09:38] VITALS: BP 108/74; PULSE 62; RESP 15; TEMP 37.3; O2SAT 99
[2020-08-05 08:26] LABS: Covid-19 Nasal PCR Sendout UK Not Detected
== END 2020-08-04 09:40 | disposition home or self-care (01) ==
PROVIDERS: Emergency Provider Nurse Practitioner Family; PCP Nurse Practitioner Family
DX: Z20.828 Contact with and (suspected) exposure to other viral communicable diseases (principal); J20.9 Acute bronchitis, unspecified; B34.9 Viral infection, unspecified; Z88.1 Allergy status to other antibiotic agents; F17.210 Nicotine dependence, cigarettes, uncomplicated
CPT/HCPCS: 99201; U0003

== ENCOUNTER 2020-09-21 11:34 | Emergency (ER) | payer BC, SELFPAY ==
[2020-09-21 12:04] VITALS: BP 176/83; PULSE 89; RESP 14; TEMP 36.1; O2SAT 97; BMI 35.5
--- NOTE | 2020-09-21 12:16 | HMH.EDUTC ---
[facility] [place] Impression: Strep throat Disposition: Home, Self-Care Condition on Discharge: Good Instructions: DI for Strep Throat, Strep Throat, Strep Throat (Alternative Therapy) Additional Instructions: *Monitor Temp, Over the counter Motrin or Tylenol as directed/as needed Tylenol every 4 hours and Motrin every 6 hours (as long as your family doctor has told you that you can take it) for fever or pain. and straight to ER if unable to lower temp less than 101.0 after medication given *Warm salt water gargles may help to soothe the throat *Throat Lozenges *Warm fluids like tea with honey may help to soothe the throat *Sleep elevated *Humidifier/Vaporizer Strep throat *If you did not take Penicillin shot or was unable to, start taking antibiotic immediately and make sure that you take it for the FULL length of time although you should start to feel better in 24-48 hours *change toothbrush and toothpaste 24-48 hours after starting to take antibiotics so you do not reinfect yourself Monitor Temp. Tylenol and/or Ibuprofen as needed. ER if fever is no less than 101 despite alternating Tylenol and Ibuprofen * Encourage fluids, water, Gatorade, powerade, pedialyte if /toddler/or child *Cold fluids, popsicles and ice cream may feel good on his throat Follow up IMMEDIATELY for new or worsening symptoms or no Noticeable improvement over the next 48-72 hours. 911 for difficulty breathing or swallowing Prescriptions: Azithromycin [Z-Allen 250mg Tab] 250 mg PO DIRECTED #6 tab Transmission Status: Pending to [facility] Ondansetron [Zofran 4mg ODT] 4 mg PO TIDP PRN #9 tab PRN Reason: Nausea Transmission Status: Pending to [facility] Referrals: Liliya Zhou APRN [Primary Care Provider] - Time of Disposition: 12:18 Medical Decision Making - Kwame Inquiry Pt receiving controlled substance: No Kwame was queried for this patient: No Vital Signs: 09/21/20 12:04 Temperature 97 F L Temperature Source Tympanic Pulse Rate [Right] 89 Respiratory Rate 14 Blood Pressure [Right Arm] 176/83 H Blood Pressure Mean [Right Arm] 114 Blood Pressure Source [Right Arm] Automatic Cuff Blood Pressure Position [Right Arm] Sitting 02 Sat by Pulse Oximetry 97 Oxygen Delivery Method Room Air - Lab Data Lab results reviewed: Yes: I reviewed the patient's lab results. Medical Decision Narrative: Patient state that she has taken azithromycin and zofran before without reactions or complications [facility] [place] - General Stated complaint: Stomach pain; vomiting; sore throat Time Seen by Provider: 09/21/20 12:16 Mode of Arrival: Ambulatory Source of Information: Patient Limitations: No Limitations Description of Symptoms (Recalled from Triage Doc. by RN): pt states it feels like she has been kicked in the stomach. she has had abd pain, n/v, diarhea, sore throat and a swollen tongue since thursday. HEENT Symptoms (Recalled from RN notes): Yes (sore throat. pt states her tongue is swollen ) Resp Symptoms (Recalled from RN notes): No Skin Symptoms (Recalled from RN notes): No MS Symptoms (Recalled from RN notes): No Functional Status (Recalled from RN notes): na - History of Present Illness Provider Complaint: Patient states that she has been having upset stomach along with cramping like pain and nausea States that she had diarrhea a couple days ago then vomiting last night and her throat hurt and she felt achy all over States that today she was still feeling bad so she came in - Related Data Home Medications Medication Instructions Recorded Confirmed Fluoxetine HCl 30 mg PO DAILY 04/18/20 05/26/20 norethindrone-e.estradioL-iron 1 tab PO DAILY 05/26/20 05/26/20 [Junel Fe 1 mg-20 Mcg Tablet] Previous Rx's Medication Instructions Recorded Fluticasone Propionate [Flonase 1 spr NS DAILY 14 Days #1 bottle 05/26/20 50mcg nasal spray 16gm] Ondansetron [Zofran 4mg ODT] 4 mg
[2020-09-21 12:30] VITALS: BP 171/78; PULSE 88; RESP 14; TEMP 37.2
[2020-09-21 20:06] LABS: UTC Strep Screen (Rapid) Positive (Negative)
== END 2020-09-21 12:31 | disposition home or self-care (01) ==
PROVIDERS: Emergency Provider Nurse Practitioner; PCP Nurse Practitioner Family
DX: J02.0 Streptococcal pharyngitis (principal); F17.290 Nicotine dependence, other tobacco product, uncomplicated
CPT/HCPCS: 87880; 99202; G0463

== ENCOUNTER 2020-12-08 20:00 | Emergency (ER) | payer OTHER, BC, SELFPAY ==
[2020-12-08 20:01] VITALS: BP 151/100; PULSE 84; RESP 16; TEMP 36.8; O2SAT 100; BMI 33.8
--- NOTE | 2020-12-08 20:52 | HMH.EDUTC ---
[facility] [place] Clinical Impression: Sting of skin Disposition: Home, Self-Care Condition on Discharge: Good Instructions: Cellulitis, DI for Insect Bites and Stings Additional Instructions: Start the steroids tomorrow that I prescribed. Take the benedryl (diphenhydramine) for itching at the sites. Don't put the topical steroids (triamcinolone) on your face or your groin. Follow up with your regular doctor. GO TO THE ER FOR ANY WORSENING SYMPTOMS OR CONCERNS Prescriptions: diphenhydrAMINE HCL [Diphenhydramine HCl] 25 mg PO Q6HP PRN #30 cap PRN Reason: Itching Transmission Status: Received by [id number] methylPREDNISolone [Medrol] 4 mg PO DIRECTED 6 Days #21 tab.ds.pk Transmission Status: Received by [id number] Triamcinolone Acetonide 1 applicatio TP TIDP PRN 7 Days #1 tube PRN Reason: Itching Transmission Status: Received by [id number] Referrals: Liliya Zhou APRN [Primary Care Provider] - Time of Disposition: 21:01 Medical Decision Making - Medical Records Medical records reviewed: No: I reviewed the patient's medical records. - Kwame Inquiry Pt receiving controlled substance: No Vital Signs: 12/08/20 20:01 12/08/20 21:10 Temperature 98.3 F 98.3 F Temperature Source Oral Oral Pulse Rate 84 Pulse Rate [Right] 84 Respiratory Rate 16 16 Blood Pressure 151/100 H Blood Pressure [Right Arm] 151/100 H Blood Pressure Mean [Right Arm] 117 02 Sat by Pulse Oximetry 100 Oxygen Delivery Method Room Air Orders (Tests/Meds): ED MEDICATIONS Discontinued Medications Generic Name Dose Route Start Last Admin Trade Name Freq PRN Reason Stop Dose Admin Prednisone 20 mg 12/08/20 21:01 12/08/20 21:06 Prednisone 20mg Tab PO 12/08/20 21:02 20 mg ONCE ONE Administration [facility] [place] - General Stated complaint: Insect bite Larm Time Seen by Provider: 12/08/20 20:52 Description of Symptoms (Recalled from Triage Doc. by RN): pt c/o reddend area on lt thumb and forarm HEENT Symptoms (Recalled from RN notes): No Resp Symptoms (Recalled from RN notes): No Skin Symptoms (Recalled from RN notes): Yes MS Symptoms (Recalled from RN notes): No Functional Status (Recalled from RN notes): wnl - History of Present Illness Provider Complaint: She states that she was at work today and felt something sting her left forearm and right thumb. Since then she has had swelling of an area on her left forearm and left thumb. She denies any fever/chills and other complaints. She states that she feels fine other than the sites are itching and driving her crazy. - Related Data Home Medications Medication Instructions Recorded Confirmed Fluoxetine HCl 30 mg PO DAILY 04/18/20 05/26/20 norethindrone-e.estradioL-iron 1 tab PO DAILY 05/26/20 05/26/20 [Junel Fe 1 mg-20 Mcg Tablet] Previous Rx's Medication Instructions Recorded Fluticasone Propionate [Flonase 1 spr NS DAILY 14 Days #1 bottle 05/26/20 50mcg nasal spray 16gm] Ondansetron [Zofran 4mg ODT] 4 mg PO TIDP PRN #8 tab 06/20/20 Ciprofloxacin HCl [Cipro 500mg 500 mg PO BID 7 Days #14 tab 06/25/20 Tab] Azithromycin [Z-Allen 250mg Tab*] 250 mg PO UD DOSE PK #6 tab 08/04/20 Ondansetron [Zofran 4mg ODT] 4 mg PO Q8HP PRN #12 tab.rapdis 08/04/20 Azithromycin [Z-Allen 250mg Tab] 250 mg PO DIRECTED #6 tab 09/21/20 Ondansetron [Zofran 4mg ODT] 4 mg PO TIDP PRN #9 tab 09/21/20 Triamcinolone Acetonide 1 applicatio TP TIDP PRN 7 Days #1 12/08/20 tube diphenhydrAMINE HCL 25 mg PO Q6HP PRN #30 cap 12/08/20 [Diphenhydramine HCl] methylPREDNISolone [Medrol] 4 mg PO DIRECTED 6 Days #21 12/08/20 tab.ds.pk Allergies Allergy/AdvReac Type Severity Reaction Status Date / Time cefdinir [CEFDINIR] Allergy Intermediate Verified 09/21/20 12:13 amoxicillin Allergy Verified 09/21/20 12:13 - Worker's Comp Is this a Worker's Comp case?: No [facility] History - Hepatitis A
[2020-12-08 21:10] VITALS: BP 151/100; PULSE 84; RESP 16; TEMP 36.8; O2SAT 100
== END 2020-12-08 21:11 | disposition home or self-care (01) ==
PROVIDERS: Emergency Provider Nurse Practitioner Family; PCP Nurse Practitioner Family
DX: S50.862A Insect bite (nonvenomous) of left forearm, initial encounter (principal); S60.362A Insect bite (nonvenomous) of left thumb, initial encounter; W57.XXXA Bitten or stung by nonvenomous insect and other nonvenomous arthropods, initial encounter; Z88.1 Allergy status to other antibiotic agents
CPT/HCPCS: 99202; G0463

== ENCOUNTER 2021-02-26 18:35 | Emergency (ER) | payer BC, SELFPAY ==
[2021-02-26 19:09] VITALS: BP 120/80; PULSE 79; RESP 16; TEMP 36.9; O2SAT 100; BMI 31.7
--- NOTE | 2021-02-26 19:41 | HMH.EDUTC ---
[facility] [place]ression: Gastroenteritis, Viral syndrome Disposition: Home, Self-Care Condition on Discharge: Good Instructions: Viral Gastroenteritis, DI for Viral Gastroenteritis -- Adult Additional Instructions: Drink plenty of fluids. Take tylenol or ibuprofen for pain or fever. Take the medications as directed. Follow up with your regular doctor. GO TO THE ER FOR ANY WORSENING SYMPTOMS Prescriptions: Ondansetron [Zofran 4mg ODT] 4 mg PO Q8HP PRN #20 tab.rapdis PRN Reason: Nausea Transmission Status: Received by [facility] Referrals: Liliya Zhou APRN [Primary Care Provider] - Forms: Work/School Release Time of Disposition: 20:05 Medical Decision Making - Medical Records Medical records reviewed: No: I reviewed the patient's medical records. - Kwame Inquiry Pt receiving controlled substance: No Vital Signs: 02/26/21 19:09 02/26/21 20:08 Temperature 98.5 F 98.5 F Temperature Source Oral Pulse Rate 79 Pulse Rate [Right] 79 Respiratory Rate 16 14 Blood Pressure 120/80 Blood Pressure [Right Arm] 120/80 Blood Pressure Mean [Right Arm] 93 02 Sat by Pulse Oximetry 100 [facility] [place] - General Stated complaint: cramps and diarrhea nausea Time Seen by Provider: 02/26/21 19:41 Mode of Arrival: Ambulatory Source of Information: Patient Limitations: No Limitations Description of Symptoms (Recalled from Triage Doc. by RN): pt c/o stomach ache, N/V/D and a ZARAGOZA ongoing for four days. HEENT Symptoms (Recalled from RN notes): Yes (ZARAGOZA) Resp Symptoms (Recalled from RN notes): No Skin Symptoms (Recalled from RN notes): No MS Symptoms (Recalled from RN notes): No Functional Status (Recalled from RN notes): na - History of Present Illness Provider Complaint: She c/o diarrhea for the past 3 days. She has had n/v also, but she has not vomited since yesterday. She was at work today but her diarrhea and abdominal cramping was so bad that she had to leave. - Related Data Previous Rx's Medication Instructions Recorded norethindrone 1 mg-ethinyl 1 tab PO DAILY #84 tab 01/31/21 estradiol 20 mcg (21)-iron 75 mg (7) tablet Ondansetron [Zofran 4mg ODT] 4 mg PO Q8HP PRN #20 tab.rapdis 02/26/21 Allergies Allergy/AdvReac Type Severity Reaction Status Date / Time cefdinir [CEFDINIR] Allergy Intermediate Verified 02/26/21 19:13 amoxicillin Allergy Verified 02/26/21 19:13 - Worker's Comp Is this a Worker's Comp case?: No [facility] History - Hepatitis A Screen Drug use history?: No High risk sexual behaviors?: No History of sexually transmitted infection?: No Currently employed?: No Childcare worker?: No Do you have indoor plumbing?: Yes Do you have electricity?: Yes Attestation statement:: This patient has been screened for Hepatitis A risk factors. I have reviewed the patient's past medical history: Yes Medical History: Denies:: Cancer, Diabetes Mellitus Type 1, Diabetes Mellitus Type 2, Internal Pacemaker, MRSA Other Surgeries: No: Pacemaker Amputation: No Fractures: No Comment: nerve removal from back age 14 - Social History Smoking Status: Current every day smoker Tobacco Type: e-cigarettes # Packs/Day (cigarettes): 1 Alcohol Intake: never Alcohol Intake Frequency:: holidays/special occasions only Substance Use Type: denies use Occupational Status: employed Housing: apartment Household Members: significant other Family Hx:: Heart Attack, Hypertension ROS Obtained: Yes All systems reviewed & no additional complaints - Constitutional Constitutional: Reports system reviewed and no additional complaints, except as docu - Eyes Eyes: Reports system reviewed and no additional complaints, except as docu - ENT Ears, Nose, Mouth, and Throat: Reports system reviewed and no additional complaints, except as docu - Cardiovascular Cardiovascular: Reports system reviewed and no additional complaints, except as docu - Respiratory Res
[2021-02-26 20:08] VITALS: BP 120/80; PULSE 79; RESP 14; TEMP 36.9
== END 2021-02-26 20:11 | disposition home or self-care (01) ==
PROVIDERS: Emergency Provider Nurse Practitioner Family; PCP Nurse Practitioner Family
DX: K52.9 Noninfective gastroenteritis and colitis, unspecified (principal); B34.9 Viral infection, unspecified

== ENCOUNTER 2021-02-28 14:43 | Emergency (ER) | payer OTHER, SELFPAY ==
[2021-02-28 14:45] VITALS: BP 126/83; PULSE 90; RESP 21; TEMP 36.9; O2SAT 100; BMI 31.7
--- NOTE | 2021-02-28 15:08 | HMH.EDUTC ---
[facility] [place] Disposition Clinical Impression: Gastroenteritis Disposition: Home, Self-Care Condition on Discharge: Good Instructions: Diarrhea, DI for Nausea -- Adult, Dicyclomine Additional Instructions: Drink extra fluids with and between meals. If you have difficulty drinking, try very small amounts of water or suck on ice chips. ? Avoid fruit juices, as these do not replace minerals and can actually increase diarrhea. ? Children and adults can use sports drinks to replenish electrolytes. Younger children and infants should use products formulated for children, like oral rehydration solutions. ? Eat food in small amounts and let your stomach recover. ? Get lots of rest. You may feel tired or weak. ? No greasy or fried foods for the next 24-48 hours BRAT diet Bananas Rice Apples and [place] ? Make sure to drink plenty of liquids ? Return if needed ? Straight to ER if any life threatening symptoms ? Zofran as prescribed ? You was given an outpatient order for diarrhea panel, please collect specimen and bring back to outpatient lab then call back to the [facility] or follow up with family doctor for results ? Follow up with family doctor in the next 48-72 hours if no improvement or any worsening of symptoms You were tested for today for COVID19 your test result should be back in the next 24-48 hours, you may call to the [facility] to see if your test results are back in the next 48 hours [phone] [facility] hours are 9am-9pm You was given a handout with instructions for Self Quarantine and Self isolation for while you wait on test results and what to do if they are positive If you are positive the Health Dept will be contacting you also Prescriptions: Dicyclomine HCl [Bentyl 10mg capsule] 10 mg PO TID PRN #15 cap PRN Reason: Cramping Transmission Status: Pending to [employer] Referrals: Liliya Zhou APRN [Primary Care Provider] - As needed Forms: Work/School Release Time of Disposition: 15:46 Medical Decision Making - Kwame Inquiry Pt receiving controlled substance: No Kwame was queried for this patient: No Vital Signs: 02/28/21 14:45 02/28/21 15:18 Temperature 98.5 F 98.5 F Temperature Source Oral Pulse Rate 90 Pulse Rate [Right Brachial] 90 Respiratory Rate 21 21 Blood Pressure 126/83 Blood Pressure [Right Arm] 126/83 Blood Pressure Mean [Right Arm] 97 Blood Pressure Source [Right Arm] Automatic Cuff Blood Pressure Position [Right Arm] Sitting 02 Sat by Pulse Oximetry 100 Oxygen Delivery Method Room Air - Lab Data Lab Results 02/28/21 15:22: [facility] Negative Orders (Tests/Meds): ED MEDICATIONS Discontinued Medications Generic Name Dose Route Start Last Admin Trade Name Fernie PRN Reason Stop Dose Admin Dicyclomine HCl 10 mg 02/28/21 15:26 02/28/21 15:29 Dicyclomine 10mg Capsule PO 02/28/21 15:27 10 mg ONCE ONE Administration ORDERS Category Date Time Status Covid-19 Nasal PCR ([facility]) Routine Lab 02/28/21 15:10 Received Medical Decision Narrative: Discussed with patient and recommended transfer to the ED if she is having stomach pain for CT and further lab work and testing and patient declined State that after taking the Bentyl she is feeling better and no longer having cramping in her abdomen State that she will try to take the Bentyl and collect diarrhea sample for testing and follow up with her PCP if no improvement Patient aware of risk associated with waiting and still declined transfer [facility] [place] HPI - General Stated complaint: stomach pain, headache, nausea, diarrhea Time Seen by Provider: 02/28/21 15:08 Mode of Arrival: Ambulatory Source of Information: Patient Limitations: No Limitations Description of Symptoms (Recalled from Triage Doc. by RN): PATIENT C/O DIARRHEA, STOMACH ACHE, BACK AND SIDE PAIN, HEADACHE, AND NAUSEA SINCE THURSDAY HEENT Symptoms (Recalled from RN notes): Yes Resp Symptoms (Recalled from RN notes): No Skin Symptoms (Recalled from RN n
[2021-02-28 15:18] VITALS: BP 126/83; PULSE 90; RESP 21; TEMP 36.9; O2SAT 100
[2021-02-28 15:23] LABS: UTC Pregnancy Test, Urine Negative (Negative)
[2021-02-28 19:01] LABS: Apearance,Urine Clear (Clear); Bilirubin,Urine Negative (Negative); Blood, Urine Negative (Negative); Color,Urine Yellow (Yellow); Glucose,Urine (UA) Negative (Negative); Ketones,Urine Negative (Negative); Protein,Urine Negative (Negative); UTC Leukocyte Esterase,Urine Negative (Negative); UTC Nitrate,Urine Negative (Negative); Urobilinogen,Urine 0.2 EU/dl (0.2)
== END 2021-02-28 15:52 | disposition home or self-care (01) ==
PROVIDERS: Emergency Provider Nurse Practitioner; PCP Nurse Practitioner Family
DX: K52.9 Noninfective gastroenteritis and colitis, unspecified (principal); Z88.1 Allergy status to other antibiotic agents; F17.290 Nicotine dependence, other tobacco product, uncomplicated
CPT/HCPCS: 81003; 81025; 99203; G0463; U0003

== ENCOUNTER → 2021-03-02 14:07 | Outpatient (CLI) | payer OTHER, SELFPAY ==
[2021-03-02 14:10] LABS: Adenovirus F 40/41, stool Not Detected (NotDetected); Astrovirus Not Detected (NotDetected); Campylobacter Not Detected (NotDetected); Clostridium Difficile A/B, PCR Not Detected (NotDetected); Cryptosporidium Not Detected (NotDetected); Cyclospora Cayetanesis Not Detected (NotDetected); Entamoeba histolytica Not Detected (NotDetected); Enteroaggregative E coli Not Detected (NotDetected); Enteropathogenic E coli Not Detected (NotDetected); Enterotoxigenic E coli Not Detected (NotDetected); Giardia lamblia Not Detected (NotDetected); Norovirus Not Detected (NotDetected); Plesimonas Shigalloides, PCR Not Detected (NotDetected); Rotavirus A Not Detected (NotDetected); Sapovirus Not Detected (NotDetected); Shiga-like toxin E coli Not Detected (NotDetected); Shigella Enterovasive E coli Not Detected (NotDetected); Vibrio Cholerae Not Detected (NotDetected); Vibrio, PCR Not Detected (NotDetected); Yersinia Entercolitica, PCR Not Detected (NotDetected)
[2021-03-02 18:03] LABS: Salmonella, PCR Detected (NotDetected)
--- NOTE | 2021-03-02 18:48 | PC.NURSE ---
relayed salmonella result to pt
== END ==
PROVIDERS: Visit Provider Nurse Practitioner
DX: R19.7 Diarrhea, unspecified (principal); A02.9 Salmonella infection, unspecified
CPT/HCPCS: 87507

== ENCOUNTER 2021-05-03 10:25 | Emergency (ER) | payer OTHER, SELFPAY ==
[2021-05-03 11:50] VITALS: BP 130/80; PULSE 75; RESP 18; TEMP 36.9; O2SAT 96; BMI 30.8
--- NOTE | 2021-05-03 11:59 | HMH.EDUTC ---
[facility] [place] Disposition Clinical Impression: Viral syndrome, Exposure to COVID-19 virus Disposition: Home, Self-Care Condition on Discharge: Good Instructions: DI for Viral Syndrome, DI for COVID-19 (Suspected or Confirmed ), Preventing the Spread of Coronavirus Discharge Instructions Additional Instructions: Drink plenty of fluids. Take tylenol or ibuprofen for pain or fever. Take the medications as directed. Follow up with your regular doctor. GO TO THE ER FOR ANY WORSENING SYMPTOMS Quarantine until you know the results of your covid-19 test. If it is positive, the health department should call you and give you further instructions about your length of Quarantine and other things. Notify your school or workplace of your results and follow their instructions regarding return to work/school. Prescriptions: Brompheniramine/Pseudoephed/Dm [Bromfed Dm Cough Syrup] 5 ml PO Q6HP PRN #240 ml PRN Reason: Cough Transmission Status: Received by [employer] Ondansetron [Zofran 4mg ODT] 4 mg PO DAILYP PRN #12 tab PRN Reason: Nausea Transmission Status: Received by [employer] Referrals: Liliya Zhou APRN [Primary Care Provider] - Forms: Work/School Release Time of Disposition: 13:05 Medical Decision Making - Medical Records Medical records reviewed: No: I reviewed the patient's medical records. - Kwame Inquiry Pt receiving controlled substance: No Vital Signs: 05/03/21 11:50 05/03/21 13:28 Temperature 98.4 F 98.4 F Temperature Source Oral Pulse Rate 75 Pulse Rate [Right Radial] 75 Respiratory Rate 18 18 Blood Pressure 130/80 Blood Pressure [Right Arm] 130/80 Blood Pressure Mean [Right Arm] 96 Blood Pressure Source [Right Arm] Automatic Cuff Blood Pressure Position [Right Arm] Sitting 02 Sat by Pulse Oximetry 96 Oxygen Delivery Method Room Air - Lab Data Lab Results 05/03/21 12:32: Strep Scn Rapid Clinic Negative Orders (Tests/Meds): ORDERS Category Date Time Status Strep Screen Confirmation Stat Micro 05/03/21 12:32 Received [facility] [place] HPI - General Stated complaint: sore throat, cough, ZARAGOZA, nausea Time Seen by Provider: 05/03/21 11:59 Mode of Arrival: Ambulatory Source of Information: Patient Limitations: No Limitations Description of Symptoms (Recalled from Triage Doc. by RN): C/O sore throat, ZARAGOZA, runny nose, nausea HEENT Symptoms (Recalled from RN notes): Yes (ZARAGOZA, runny nose, sore throat) Resp Symptoms (Recalled from RN notes): No Skin Symptoms (Recalled from RN notes): No MS Symptoms (Recalled from RN notes): No Functional Status (Recalled from RN notes): n/a - History of Present Illness Provider Complaint: She has had a runny nose, sinus congestion and felt bad for the past 2 days. - Related Data Previous Rx's Medication Instructions Recorded norethindrone 1 mg-ethinyl 1 tab PO DAILY #84 tab 01/31/21 estradiol 20 mcg (21)-iron 75 mg (7) tablet Dicyclomine HCl [Bentyl 10mg 10 mg PO TID PRN #15 cap 02/28/21 capsule] Brompheniramine/Pseudoephed/Dm 5 ml PO Q6HP PRN #240 ml 05/03/21 [Bromfed Dm Cough Syrup] Ondansetron [Zofran 4mg ODT] 4 mg PO DAILYP PRN #12 tab 05/03/21 Allergies Allergy/AdvReac Type Severity Reaction Status Date / Time cefdinir [CEFDINIR] Allergy Intermediate Verified 02/26/21 19:13 amoxicillin Allergy Verified 02/26/21 19:13 clavulanic acid Allergy Verified 02/28/21 15:00 [From Augmentin] - Worker's Comp Is this a Worker's Comp case?: No [facility] History - Hepatitis A Screen Drug use history?: No High risk sexual behaviors?: No History of sexually transmitted infection?: No Currently employed?: No Childcare worker?: No Do you have indoor plumbing?: Yes Do you have electricity?: Yes Attestation statement:: This patient has been screened for Hepatitis A risk factors. I have reviewed the patient's past medical history: Yes Medical History: Denies:: Cancer, Diabetes Me
[2021-05-03 13:28] VITALS: BP 130/80; PULSE 75; RESP 18; TEMP 36.9; O2SAT 96
[2021-05-04 09:59] LABS: UTC Strep Screen (Rapid) Negative (Negative)
== END 2021-05-03 13:31 | disposition home or self-care (01) ==
PROVIDERS: Emergency Provider Nurse Practitioner Family; PCP Nurse Practitioner Family
DX: B34.9 Viral infection, unspecified (principal); Z20.822 Contact with and (suspected) exposure to COVID-19
CPT/HCPCS: 87880; 99203; C9803; G0463; U0003; U0005

== ENCOUNTER 2021-06-12 14:30 | Emergency (ER) | payer OTHER, SELFPAY ==
[2021-06-12 16:00] VITALS: BP 149/97; PULSE 53; RESP 20; TEMP 36.8; O2SAT 100; BMI 31.1
[2021-06-12 16:13] LABS: UTC Strep Screen (Rapid) Negative (Negative)
--- NOTE | 2021-06-12 16:47 | HMH.EDUTC ---
[facility] [place] Clinical Impression: Viral syndrome Sinusitis Qualifiers: Sinusitis location: unspecified location Chronicity: acute Recurrence: recurrent Qualified Code(s): J01.91 - Acute recurrent sinusitis, unspecified Disposition: Home, Self-Care Condition on Discharge: Serious Instructions: DI for Sinusitis, DI for COVID-19 (Suspected or Confirmed ), Preventing the Spread of Coronavirus Discharge Instructions Additional Instructions: Drink plenty of fluids. Take tylenol or ibuprofen for pain or fever. Take the medications as directed. Follow up with your regular doctor. GO TO THE ER FOR ANY WORSENING SYMPTOMS Quarantine until you know the results of your covid-19 test. If it is positive, the health department should call you and give you further instructions about your length of Quarantine and other things. Notify your school or workplace of your results and follow their instructions regarding return to work/school. Prescriptions: Brompheniramine/Pseudoephed/Dm [Bromfed Dm Cough Syrup] 5 ml PO Q6HP PRN #240 ml PRN Reason: Cough Transmission Status: Received by [employer] Azithromycin [Z-Allen 250mg Tab*] 250 mg PO UD DOSE PK #6 tab Transmission Status: Received by [employer] Referrals: Liliya Zhou APRN [Primary Care Provider] - Forms: Work/School Release Time of Disposition: 16:55 Medical Decision Making - Medical Records Medical records reviewed: No: I reviewed the patient's medical records. - Kwame Inquiry Pt receiving controlled substance: No Vital Signs: 06/12/21 16:00 06/12/21 16:57 Temperature 98.3 F 98.3 F Temperature Source Oral Pulse Rate 53 L Pulse Rate [Right Brachial] 53 L Respiratory Rate 20 20 Blood Pressure 149/97 H Blood Pressure [Right Arm] 149/97 H Blood Pressure Mean [Right Arm] 114 Blood Pressure Source [Right Arm] Automatic Cuff Blood Pressure Position [Right Arm] Sitting 02 Sat by Pulse Oximetry 100 Oxygen Delivery Method Room Air - Lab Data Lab results reviewed: Yes: I reviewed the patient's lab results. Lab Results 06/12/21 16:04: Strep Scn Rapid Clinic Negative 06/12/21 16:49: Chlamy pneumoniae PCR Not detected, Adenovirus (PCR) Not detected, B. pertussis DNA (PCR) Not detected, Coronavirus OC43 (PCR) Not detected, Coronavirus HKU1 (PCR) Not detected, Coronavirus 229E (PCR) Not detected, SARS-CoV-2 (PCR) Not detected, Coronavirus NL63 (PCR) Not detected, Human Metapneumovir PCR Not detected, Influenza A (H1) PCR Not detected, Influ A (H1N1/09) PCR Not detected, Influenza A (H3) PCR Not detected, Influenza Type A (PCR) Not detected, Influenza Type B (PCR) Not detected, M. pneumoniae (PCR) Not detected, Parainfluenza 1 (PCR) Not detected, Parainfluenza 2 (PCR) Not detected, Parainfluenza 3 (PCR) Not detected, Parainfluenza 4 (PCR) Not detected, RSV (PCR) Not detected, Entero/Rhino (PCR) Not detected Orders (Tests/Meds): ORDERS Category Date Time Status Strep Screen Confirmation Routine Micro 06/12/21 16:04 Received [facility] [place] - General Stated complaint: covid symptoms Time Seen by Provider: 06/12/21 16:47 Mode of Arrival: Ambulatory Source of Information: Patient Limitations: No Limitations Description of Symptoms (Recalled from Triage Doc. by RN): PATIENT C/O RUNNY NOSE, CONGESTION, HEADACHE, SORE THROAT, AND COUGH SINCE THURSDAY HEENT Symptoms (Recalled from RN notes): Yes Resp Symptoms (Recalled from RN notes): Yes Skin Symptoms (Recalled from RN notes): No MS Symptoms (Recalled from RN notes): No Functional Status (Recalled from RN notes): WNL - History of Present Illness Provider Complaint: She c/o feeling bad since Thursday. She has a sore throat, cough and sinus congestion. - Related Data Previous Rx's Medication Instructions Recorded norethindrone 1 mg-ethinyl 1 tab PO DAILY #84 tab 01/31/21 estradiol 20 mcg (21)-iron 75 mg (7) tablet Azithromycin [Z-Allen 250mg Tab*] 250 mg PO UD DOSE P
[2021-06-12 16:56] LABS: Adenovirus,PCR Not Detected (NotDetected); Bordetella Pertussis Not Detected (NotDetected); Chlamydophila Pneumoniae, PCR Not Detected (NotDetected); Coronavirus 19, PCR Not Detected (NotDetected); Coronavirus 229E Not Detected (NotDetected); Coronavirus NL63 Not Detected (NotDetected); Coronavirus OC43 Not Detected (NotDetected); Coronovirus HKU1,PCR Not Detected (NotDetected); Human Metapneumovirus Not Detected (NotDetected); Influenza A, PCR Not Detected (NotDetected); Influenza AH1, 2009 Not Detected (NotDetected); Influenza AH1, PCR Not Detected (NotDetected); Influenza AH3,PCR Not Detected (NotDetected); Influenza B, PCR Not Detected (NotDetected); Mycoplasma Pneumoniae, PCR Not Detected (NotDetected); Parainfluenza 1, PCR Not Detected (NotDetected); Parainfluenza 2, PCR Not Detected (NotDetected); Parainfluenza 3, PCR Not Detected (NotDetected); Parainfluenza 4, PCR Not Detected (NotDetected); Respiratory Syncytial Virus Not Detected (NotDetected); Rhinovirus/Enterovirus Not Detected (NotDetected)
[2021-06-12 16:57] VITALS: BP 149/97; PULSE 53; RESP 20; TEMP 36.8; O2SAT 100
== END 2021-06-12 17:00 | disposition home or self-care (01) ==
PROVIDERS: Emergency Provider Nurse Practitioner Family; PCP Nurse Practitioner Family
DX: J01.91 Acute recurrent sinusitis, unspecified (principal)
CPT/HCPCS: 87581; 87632; 87798; 87880; 99203; C9803; G0463; U0003; U0005

== ENCOUNTER 2021-08-16 15:14 | Emergency (ER) | payer OTHER, SELFPAY ==
[2021-08-16 16:45] VITALS: BP 138/89; PULSE 80; RESP 18; TEMP 36.9; O2SAT 98; BMI 34.7
--- NOTE | 2021-08-16 17:16 | HMH.EDUTC ---
[facility] [place] Disposition Clinical Impression: Influenza A Disposition: Home, Self-Care Condition on Discharge: Good Instructions: Influenza, DI for Influenza -- Adult, Oseltamivir Additional Instructions: Drink plenty of fluids. Take tylenol or ibuprofen for pain or fever. Take the medications as directed. Follow up with your regular doctor. GO TO THE ER FOR ANY WORSENING SYMPTOMS Prescriptions: Brompheniramine/Pseudoephed/Dm [Bromfed Dm Cough Syrup] 5 ml PO Q6HP PRN #240 ml PRN Reason: Cough Transmission Status: Pending to [employer] Ondansetron [Zofran 4mg ODT] 4 mg PO Q8HP PRN #20 tab PRN Reason: Nausea Transmission Status: Pending to [facility] Oseltamivir Phosphate [Tamiflu 75mg Capsule] 75 mg PO BID #10 cap Transmission Status: Pending to [employer] Referrals: Liliya Zhou APRN [Primary Care Provider] - Time of Disposition: 17:25 Medical Decision Making - Medical Records Medical records reviewed: No: I reviewed the patient's medical records. - Kwame Inquiry Pt receiving controlled substance: No Vital Signs: 08/16/21 16:45 Temperature 98.5 F Temperature Source Oral Pulse Rate [Right Brachial] 80 Respiratory Rate 18 Blood Pressure [Right Arm] 138/89 Blood Pressure Mean [Right Arm] 105 Blood Pressure Source [Right Arm] Automatic Cuff Blood Pressure Position [Right Arm] Sitting 02 Sat by Pulse Oximetry 98 Oxygen Delivery Method Room Air - Lab Data Lab results reviewed: Yes: I reviewed the patient's lab results. [facility] [place] HPI - General Stated complaint: cold,sore throat,cough castro,congestion Time Seen by Provider: 08/16/21 17:16 Mode of Arrival: Ambulatory Source of Information: Patient Limitations: No Limitations Description of Symptoms (Recalled from Triage Doc. by RN): PATIENT C/O HEADACHE, COUGH, SORE THROAT, CONGESTION AND BODY ACHES SINCE YESTERDAY MORNING HEENT Symptoms (Recalled from RN notes): Yes Resp Symptoms (Recalled from RN notes): Yes Skin Symptoms (Recalled from RN notes): No MS Symptoms (Recalled from RN notes): No Functional Status (Recalled from RN notes): WNL - History of Present Illness Provider Complaint: She states that for the past 2 days she has had chilling, low grade fever, cough and body aches. Her had influenza earlier this week. - Related Data Previous Rx's Medication Instructions Recorded norethindrone 1 mg-ethinyl 1 tab PO DAILY #84 tab 01/31/21 estradiol 20 mcg (21)-iron 75 mg (7) tablet Azithromycin [Z-Allen 250mg Tab*] 250 mg PO UD DOSE PK #6 tab 06/12/21 Brompheniramine/Pseudoephed/Dm 5 ml PO Q6HP PRN #240 ml 06/12/21 [Bromfed Dm Cough Syrup] Brompheniramine/Pseudoephed/Dm 5 ml PO Q6HP PRN #240 ml 08/16/21 [Bromfed Dm Cough Syrup] Ondansetron [Zofran 4mg ODT] 4 mg PO Q8HP PRN #20 tab 08/16/21 Oseltamivir Phosphate [Tamiflu 75 mg PO BID #10 cap 08/16/21 75mg Capsule] Allergies Allergy/AdvReac Type Severity Reaction Status Date / Time cefdinir [CEFDINIR] Allergy Intermediate Verified 02/26/21 19:13 amoxicillin Allergy Verified 02/26/21 19:13 clavulanic acid Allergy Verified 02/28/21 15:00 [From Augmentin] - Worker's Comp Is this a Worker's Comp case?: No [facility] History - Hepatitis A Screen Drug use history?: No High risk sexual behaviors?: No History of sexually transmitted infection?: No Currently employed?: No Childcare worker?: No Do you have indoor plumbing?: Yes Do you have electricity?: Yes Attestation statement:: This patient has been screened for Hepatitis A risk factors. I have reviewed the patient's past medical history: Yes Medical History: Denies:: Cancer, Diabetes Mellitus Type 1, Diabetes Mellitus Type 2, Internal Pacemaker, MRSA Other Surgeries: No: Pacemaker Amputation: No Fractures: No Comment: nerve removal from back age 14 - Social History Smoking Status: Current every day smoker Tobacco Type: e-cigarettes # Packs/Day (cigaret
[2021-08-16 17:18] LABS: UTC Strep Screen (Rapid) Negative (Negative)
[2021-08-16 17:19] LABS: UTC Influenza A Antigen Positive (Negative); UTC Influenza B Antigen Negative (Negative)
[2021-08-16 17:28] VITALS: BP 138/89; PULSE 80; RESP 18; TEMP 36.9; O2SAT 98
== END 2021-08-16 17:31 | disposition home or self-care (01) ==
PROVIDERS: Emergency Provider Nurse Practitioner Family; PCP Nurse Practitioner Family
DX: J10.1 Influenza due to other identified influenza virus with other respiratory manifestations (principal); F17.210 Nicotine dependence, cigarettes, uncomplicated
CPT/HCPCS: 87804; 87880; 99203; G0463

== ENCOUNTER 2021-08-20 19:29 | Emergency (ER) | payer OTHER, SELFPAY ==
[2021-08-20 19:35] VITALS: BP 155/98; PULSE 68; RESP 20; TEMP 36.7; O2SAT 95; BMI 34.7
--- NOTE | 2021-08-20 19:57 | HMH.EDUTC ---
[facility] [place] Clinical Impression: Influenza A, Viral syndrome Disposition: Home, Self-Care Condition on Discharge: Good Instructions: How to Avoid a Cold or Flu, Influenza, DI for Influenza -- Adult Additional Instructions: ? Lots of rest ? Increase Fluids water, Gatorade, powerade, pedialyte,if infant/toddler/child ? Alternate Tylenol and / or ibuprofen as discussed for fever, aches, chills Follow up IMMEDIATELY with your family doctor for new or worsening Symptoms OR no noticeable improvement over the next 48-72 hours, 911 for difficulty or breathing ? You or your child area contagious until no fever, aches, chills for 24 hours with medication for symptoms ? Help Prevent the spread of influenza: ? Wash your hands often. Use soap and water. Wash your hands after you use the bathroom, change a child's diapers, or sneeze. Wash your hands before you prepare or eat food. Use gel hand cleanser that has 60% alcohol, when soap and water are not available. Do not touch your eyes, nose, or mouth unless you have washed your hands first. ? Cover your mouth when you sneeze or cough. Cough into a tissue or the bend of your arm. If you use a tissue, throw it away immediately and wash your hands. ? Clean shared items with a germ-killing freight car cleaner delta system. Clean table surfaces, doorknobs, and light switches. Do not share towels, silverware, and dishes with people who are sick. Wash bed sheets, towels, silverware, and dishes with soap and water. ? Wear a mask over your mouth and nose if you are sick. The face mask may help protect others from becoming infected with the flu. Wear the mask when in common areas of your home or if you seek care with a healthcare provider. ? Stay away from others if you are sick. Stay at home until 24 hours after your fever and symptoms are gone. You were tested for today for COVID19 your test result should be back in the next 24-48 hours, you may check your results on the [facility] portal if you have trouble logging on you may call You was given a handout with instructions for Self Quarantine and Self isolation for while you wait on test results and what to do if they are positive If you are positive the Health Dept will be contacting you also Make sure to take your Vitamins Vit. C Vit D and Zinc if you can take them Take your prescribed Zofran for nausea Over the counter Cold medication may help like elvira pritchett cold Referrals: Liliya Zhou APRN [Primary Care Provider] - As needed Forms: Work/School Release Medical Decision Making - Kwame Inquiry Pt receiving controlled substance: No Kwame was queried for this patient: No Vital Signs: 08/20/21 19:35 Temperature 98.1 F Temperature Source Oral Pulse Rate [Right Brachial] 68 Respiratory Rate 20 Blood Pressure [Right Arm] 155/98 H Blood Pressure Mean [Right Arm] 117 Blood Pressure Source [Right Arm] Automatic Cuff Blood Pressure Position [Right Arm] Sitting 02 Sat by Pulse Oximetry 95 Oxygen Delivery Method Room Air - Lab Data Lab results reviewed: Yes: I reviewed the patient's lab results. Lab Results 08/20/21 20:04: Tst Clinic Negative Orders (Tests/Meds): ORDERS Category Date Time Status Covid-19 Nasal PCR ([facility]) Routine Lab 08/20/21 20:01 Received [facility] [place]PI - General Stated complaint: cough,congestion,diarrhea Time Seen by Provider: 08/20/21 19:57 Mode of Arrival: Ambulatory Source of Information: Patient Limitations: No Limitations Description of Symptoms (Recalled from Triage Doc. by RN): PATIENT C/O HEADACHE, NAUSEA, BODY ACHES, AND DIARRHEA. STATES SHE TESTED POSITIVE FOR FLU ON 08/15 HEENT Symptoms (Recalled from RN notes): No Resp Symptoms (Recalled from RN notes): No Skin Symptoms (Recalled from RN notes): Yes MS Symptoms (Recalled from RN notes): No Functional Status (Recalled from RN notes): WNL - History of Present Illness Provider Complaint: Patient states that she was tested for flu and was positive on 07/19
[2021-08-20 20:09] LABS: UTC Pregnancy Test, Urine Negative (Negative)
[2021-08-20 20:22] VITALS: BP 155/98; PULSE 68; RESP 20; TEMP 36.7; O2SAT 95
== END 2021-08-20 20:30 | disposition home or self-care (01) ==
PROVIDERS: Emergency Provider Nurse Practitioner; PCP Nurse Practitioner Family
DX: J10.1 Influenza due to other identified influenza virus with other respiratory manifestations (principal); F17.290 Nicotine dependence, other tobacco product, uncomplicated
CPT/HCPCS: 81025; 99203; C9803; G0463; U0003; U0005

== ENCOUNTER → 2021-09-20 13:21 | Outpatient (CLI) | payer OTHER, SELFPAY | LOC: HMH.CTC 13:22 | PROVIDERS: PCP Nurse Practitioner Family; Visit Provider Nurse Practitioner | DX: U07.1 COVID-19 (principal) | CPT/HCPCS: C9803; U0003; U0005 ==

== ENCOUNTER 2021-10-11 18:55 | Emergency (ER) | payer OTHER, SELFPAY ==
[2021-10-11 20:38] VITALS: PULSE 76; RESP 19; TEMP 36.8; O2SAT 100; BMI 33.6
--- NOTE | 2021-10-11 20:56 | HMH.EDUTC ---
[facility] [place] Condition on Discharge: Good <Romero Lazo - Last Filed: 10/11/21 23:46> <Bryan Michel - Last Filed: 10/14/21 02:30> Clinical Impression: Viral syndrome Nausea and vomiting Qualifiers: Vomiting type: unspecified Qualified Code(s): R11.2 - Nausea with vomiting, unspecified Abdominal pain Qualifiers: Abdominal location: generalized Qualified Code(s): R10.84 - Generalized abdominal pain Disposition: Home, Self-Care Instructions: DI for Nausea -- Adult Additional Instructions: fluids and use meds and see pcp for follow up Prescriptions: Ondansetron [Zofran 4mg ODT] 4 mg PO TIDP PRN #15 tab PRN Reason: Nausea And Vomiting Transmission Status: Received by [employer] Referrals: Liliya Zhou APRN [Primary Care Provider] - Forms: Work/School Release Medical Decision Making - Medical Records Medical records reviewed: Yes: I reviewed the patient's medical records. - Kwame Inquiry Pt receiving controlled substance: No - Lab Data Lab results reviewed: Yes: I reviewed the patient's lab results. Result diagrams: 10/11/21 22:30 10/11/21 22:30 - CT Data CT Scan: Abdomen, Pelvis Time Received: 23:[address] Reviewed: Yes: I have viewed the radiologist's interpretation Preliminary Findings: Normal/NAD <Romero Lazo - Last Filed: 10/11/21 23:46> - Medical Records Medical records reviewed: No: I reviewed the patient's medical records. - Kwame Inquiry Pt receiving controlled substance: No - Lab Data Lab results reviewed: Yes: I reviewed the patient's lab results. Result diagrams: 10/11/21 22:30 10/11/21 22:30 <Bryan Michel - Last Filed: 10/14/21 02:30> Vital Signs: 10/11/21 20:38 10/11/21 22:07 10/12/21 00:06 Temperature 98.2 F 98.1 F 97.9 F Temperature Source Oral Oral Oral Pulse Rate 58 L Pulse Rate [Left] 76 75 Respiratory Rate 19 16 16 Blood Pressure 107/72 L Blood Pressure [Right Arm] 133/85 Blood Pressure Mean [Right Arm] 101 Blood Pressure Source Automatic Cuff Blood Pressure Source [Right Arm] Automatic Cuff Blood Pressure Position Sitting Blood Pressure Position [Right Arm] Sitting 02 Sat by Pulse Oximetry 100 98 Oxygen Delivery Method Room Air Room Air - Lab Data Lab Results 10/11/21 20:59: Strep Scn Rapid Clinic Negative 10/11/21 20:59: Tst Clinic Negative 10/11/21 21:27: Urine Color Yellow, Urine Appearance Slightly cloudy, Urine pH 5.5, Ur Specific [place] 1.025, Urine Protein Negative, Urine Glucose (UA) Negative, Urine Ketones Negative, Urine Blood Negative, Urine Nitrate Negative, Urine Bilirubin Negative, Urine Urobilinogen 0.2, Ur Leukocyte Esterase Negative 10/11/21 21:44: Urine Color Yellow, Urine Appearance Sl cloudy, Urine pH 6.0, Ur Specific [place] 1.025, Urine Protein Negative, Urine Glucose (UA) Negative, Urine Ketones Negative, Urine Blood Negative, Urine Nitrate Negative, Urine Bilirubin Negative, Urine Urobilinogen 0.2, Ur Leukocyte Esterase Negative, Urine WBC 3-5, Ur Squamous Epith Cells 10-20 10/11/21 22:30: WBC 10.8, RBC 4.36, Hgb 13.6, Hct 39.3, MCV 90.0, MCH 31.1, MCHC 34.6, RDW 12.3, Plt Count 316, MPV 8.0, Neut % (Auto) 59.7, Lymph % (Auto) 33.5, [place] % (Auto) 4.5, Eos % (Auto) 1.6, Baso % (Auto) 0.7, Neut # (Auto) 6.5, Lymph # (Auto) 3.6, [place] # (Auto) 0.5, Eos # (Auto) 0.2, Baso # (Auto) 0.1, ESR 30 H 10/11/21 22:30: Sodium 140, Potassium 3.8, Chloride 104, Carbon Dioxide 25, Anion Gap 14.8, BUN 8, Creatinine 0.50 L, Estimated Creat Clear 223, Estimated GFR 153, Est GFR ( Amer) 185, Glucose 97, Calcium 9.3, Total Bilirubin 0.6, AST 27, ALT 16, Alkaline Phosphatase 70, C-Reactive Protein 19.3 H, Total Protein 8.7 H, Albumin 4.9, Globulin 3.8 H, Albumin/Globulin Ratio 1.3 Orders (Tests/Meds): ED MEDICATIONS Discontinued Medications Generic Name Dose Route Start Last Admin Trade Name Freq PRN Reason Stop Dose Admin Sodium Chloride 1,000 mls @ 999 mls/hr 10/11/21 23:30
[2021-10-11 21:00] LABS: UTC Pregnancy Test, Urine Negative (Negative)
[2021-10-11 21:09] LABS: UTC Strep Screen (Rapid) Negative (Negative)
[2021-10-11 21:31] LABS: Apearance,Urine Slightly Cloudy (Clear); Bilirubin,Urine Negative (Negative); Blood, Urine Negative (Negative); Color,Urine Yellow (Yellow); Glucose,Urine (UA) Negative (Negative); Ketones,Urine Negative (Negative); PH,Urine 5.5 (5.0-8.5); Protein,Urine Negative (Negative); Specific Gravity, Urine 1.025 (1.005-1.030)
[2021-10-11 21:32] LABS: UTC Leukocyte Esterase,Urine Negative (Negative); UTC Nitrate,Urine Negative (Negative); Urobilinogen,Urine 0.2 EU/dl (0.2)
[2021-10-11 22:07] VITALS: BP 133/85; PULSE 75; RESP 16; TEMP 36.7; O2SAT 98; BMI 33.6
--- NOTE | 2021-10-11 22:14 | CT_ITS ---
PROCEDURE INFORMATION: Exam: CT Abdomen And Pelvis With Contrast Exam date and time: 10/11/2021 10:14 PM Age: 21 years old Clinical indication: Nausea and vomiting and other: Abdomen cramping; Additional info: Abd pain TECHNIQUE: Imaging protocol: Computed tomography of the abdomen and pelvis with contrast. Radiation optimization: All CT scans at this facility use at least one of these dose optimization techniques: automated exposure control; mA and/or kV adjustment per patient size (includes targeted exams where dose is matched to clinical indication); or iterative reconstruction. Contrast material: ISOVUE; Contrast volume: 75 ml; Contrast route: IV; COMPARISON: CR XR KUB 12/15/2019 3:51 PM FINDINGS: Lungs: No mass/infiltrate at either lung base. No pleural effusion. To peripheral calcified granulomas at the left lung base. Liver: The liver is normal in size and attenuation. No intrahepatic biliary dilitation. Gallbladder and bile ducts: Normal. No calcified stones. No ductal dilation. Gallbladder wall thickness is normal. Pancreas: Normal. No ductal dilation. Spleen: Normal. No splenomegaly. Granulomatous calcifications are noted. Adrenal glands: Normal. No mass. Kidneys and ureters: Normal. No hydronephrosis. Stomach and bowel: Unremarkable. No obstruction. No mucosal thickening. Small bowel mesentery is normal. Appendix: The appendix is poorly visualized on this examination. There is no evidence of acute inflammatory process within the right lower quadrant. Intraperitoneal space: Unremarkable. No free air. No significant fluid collection. Vasculature: Unremarkable. No abdominal aortic aneurysm. Lymph nodes: Unremarkable. No enlarged lymph nodes. Urinary bladder: Unremarkable as visualized. Reproductive: The uterus is retroverted and retroflexed. There is a 2.5 cm well-circumscribed low-attenuation lesion present within the right adnexal region. This probably represents a functional ovarian cyst the right ovary. Correlation could be made with ultrasound of the pelvis with transvaginal sonography. Bones/joints: Unremarkable. No acute fracture. Soft tissues: Unremarkable. IMPRESSION: 1. The appendix is poorly visualized on this examination although there is no evidence of acute inflammatory process within the right lower quadrant. 2. Uterus is retroverted and retroflexed. 2.5 cm well-circumscribed low-attenuation lesion within the right adnexal region. This could represent a functional ovarian cyst. Correlation could be made with ultrasound of the pelvis with transvaginal sonography for further evaluation.
[2021-10-11 22:39] LABS: Basophils # 0.1 K/mm3 (0-0.2); Basophils % 0.7 % (0.1-2.0); Eosinophils # 0.2 K/mm3 (0.0-0.4); Eosinophils % 1.6 % (0.1-12.0); Hematocrit 39.3 % (37.0-47.0); Hemoglobin 13.6 g/dL (12.2-16.2); Lymphocytes # 3.6 K/mm3 (0.7-4.5); Lymphocytes % 33.5 % (10-50); Mean Corpuscular HGB Conc 34.6 g/dL (31.8-35.4); Mean Corpuscular Hemoglobin 31.1 pg (27.0-31.2); Monocytes # 0.5 K/mm3 (0.1-1.0); Monocytes % 4.5 % (1.7-9.3); Neutrophils # 6.5 K/mm3 (1.8-7.8); Neutrophils % 59.7 % (37.0-80.0); Platelet Count 316 K/mm3 (142-424); Red Blood Count 4.36 M/mm3 (4.20-5.40); Red Cell Distribution Width 12.3 % (11.5-17.5); White Blood Count 10.8 K/mm3 (4.8-10.8)
[2021-10-11 22:47] LABS: Appearance,Urine SL CLOUDY (Clear); Bilirubin,Urine Negative (Negative); Blood, Urine Negative (Negative); Color,Urine YELLOW (Yellow); Glucose,Urine (UA) Negative (Negative); Ketones,Urine Negative (Negative); Leukocyte Esterase,Urine Negative (Negative); Microscopic, Urine URINE MICROSCOPIC (MICROSCOPIC); Nitrate,Urine Negative (Negative); Protein,Urine Negative (Negative); Specific Gravity, Urine 1.025 (1.005-1.030); Urobilinogen,Urine 0.2 EU/dl (0.2)
[2021-10-11 22:49] LABS: Alanine Aminotransferase 16 U/L (12-78); Albumin Level 4.9 g/dl (3.5-5.0); Albumin/Globulin Ratio 1.3 (1.1-1.8); Alkaline Phosphatase 70 U/L (38-126); Anion Gap 14.8 mEq/L (5-15); Aspartate Amino Transferase 27 U/L (14-36); Bilirubin,Total 0.6 mg/dl (0.2-1.3); Blood Urea Nitrogen 8 mg/dl (7-17); Calcium 9.3 mg/dl (8.4-10.2); Carbon Dioxide 25 mmol/L (22.0-30.0); Chloride 104 mmol/L (98-107); Creatinine Clearance Estimated 223 mL/min (50-200); Estimated Glomerular Filt Rate 153 ml/min (>60); GFR (African American) 185 ML/MIN (>60); Globulin 3.8 g/dL (1.3-3.2); Glucose 97 mg/dl (74-100); Potassium 3.8 mmoL/L (3.5-5.1); Sodium 140 mmol/L (136-145); Total Protein,Serum 8.7 g/dl (6.3-8.2)
[2021-10-11 22:54] LABS: C-Reactive Protein 19.3 mg/L (0-4)
[2021-10-11 23:04] LABS: Erythrocyte Sedimentation Rate 30 mm/hr (0-20)
[2021-10-12 00:06] VITALS: BP 107/72; PULSE 58; RESP 16; TEMP 36.6; O2SAT 100
== END 2021-10-12 00:16 | disposition home or self-care (01) ==
LOC: UTC 18:58 → ER 21:32
PROVIDERS: Nurse Practitioner Family; Emergency Provider Emergency Medicine; PCP Nurse Practitioner Family
DX: R10.84 Generalized abdominal pain (principal); B34.9 Viral infection, unspecified; F17.290 Nicotine dependence, other tobacco product, uncomplicated
CPT/HCPCS: 74177; 80053; 81001; 81003; 81025; 85025; 85651; 86140; 87086; 87880; 96365; 96375; 99283; 99284; J2405; Q9967

== ENCOUNTER 2022-02-11 06:54 | Emergency (ER) | payer OTHER, SELFPAY ==
[2022-02-11 07:01] VITALS: BP 129/80; PULSE 86; RESP 18; TEMP 36.7; O2SAT 100; BMI 34.0
--- NOTE | 2022-02-11 07:07 | PC.NURSE ---
PT TO XR
--- NOTE | 2022-02-11 07:07 | XR_ITS ---
FINAL REPORT CLINICAL HISTORY: PT SMASHED HAND IN DOOR, 5TH DIGIT PAIN FINDINGS: LEFT HAND: 3 views of the left hand were obtained. There is no acute fracture or dislocation. Visualized joint spaces are normally aligned. Soft tissues are unremarkable. IMPRESSION: No acute bony abnormality. Reviewed, Interpreted and Dictated by Barak Dumont III, MD Transcribed by Rajendra Olivarez Authenticated and [facility]
--- NOTE | 2022-02-11 07:10 | PC.NURSE ---
PT RETURNED FROM XR
--- NOTE | 2022-02-11 07:19 | HMH.EDGENADL ---
ED Disposition Clinical Impression: Injury of thumb, left Qualifiers: Encounter type: initial encounter Qualified Code(s): S69.92XA - Unspecified injury of left wrist, hand and finger(s), initial encounter Disposition: Home, Self-Care Condition on Discharge: Good Instructions: DI for Hand Injury Additional Instructions: advil/tyenol and ice and see pcp for follow up Referrals: Liliya Zhou APRN [Primary Care Provider] - - Critical Care Critical Care Time: No Attestation: On 02/11/22, the high probability of a clinically significant, sudden or life threatening deterioration of the following system(s) required my full and direct attention, intervention and personal management. The time I documented below is in addition to time spent performing reported procedures but includes the following listed in this critical care notation. Medical Decision Making - Medical Records Medical records reviewed: Yes: I reviewed the patient's medical records. - Kwame Inquiry Pt receiving controlled substance: No Vital Signs: 02/11/22 07:01 Temperature 98.1 F Temperature Source Oral Pulse Rate [Brachial] 86 Respiratory Rate 18 Blood Pressure [Right Arm] 129/80 Blood Pressure Mean [Right Arm] 96 Blood Pressure Source [Right Arm] Automatic Cuff Blood Pressure Position [Right Arm] Sitting 02 Sat by Pulse Oximetry 100 Oxygen Delivery Method Room Air - Lab Data Lab results reviewed: Yes: I reviewed the patient's lab results. Orders (Tests/Meds): ORDERS Category Date Time Status XR hand LT min 3V Stat Exams 02/11/22 07:07 Taken - Radiology Data #1 Image(s): Hand Image Reviewed: Yes I reviewed the patient's radiology image Preliminary Findings: No Fracture Seen Medical Decision Narrative: pt with distal lt thumb injury with xray with no def fx General Adult HPI - General Chief complaint: PAIN Stated complaint: Left thumb pain AO 0630 Time Seen by Provider: 02/11/22 07:19 Mode of Arrival: Ambulatory Source of Information: Patient, Medical Record Limitations: No Limitations Description of Symptoms (Recalled from ER Triage Doc. by RN): PT SMASHED HER LEFT THUMB IN DOOR AT WORK, ABLE TO MOVE, INCREASED PAIN. SWELLING NOTED - History of Present Illness HPI narrative: acute injury lt thumb - caught in door Onset (ago): hour(s) Location: upper extremity Severity: moderate Quality: constant Consistency: constant Associated symptoms: denies other symptoms Treatments prior to arrival: none - Related Data Previous Rx's Medication Instructions Recorded norethindrone 1 mg-ethinyl 1 tab PO DAILY #84 tab 01/31/21 estradiol 20 mcg (21)-iron 75 mg (7) tablet Ondansetron [Zofran 4mg ODT] 4 mg PO TIDP PRN #15 tab 10/11/21 Allergies Allergy/AdvReac Type Severity Reaction Status Date / Time cefdinir [CEFDINIR] Allergy Intermediate Verified 02/26/21 19:13 amoxicillin Allergy Verified 02/26/21 19:13 clavulanic acid Allergy Verified 02/28/21 15:00 [From Augmentin] [facility] History - Hepatitis A Screen Attestation statement:: This patient has been screened for Hepatitis A risk factors. I have reviewed the patient's past medical history: Yes Medical History: Denies:: Cancer, Diabetes Mellitus Type 1, Diabetes Mellitus Type 2, Internal Pacemaker, MRSA Other Surgeries: No: Pacemaker Amputation: No Fractures: No Comment: nerve removal from back age 14 - Social History Smoking Status: Current every day smoker Tobacco Type: e-cigarettes # Packs/Day (cigarettes): 1 Alcohol Intake: never Alcohol Intake Frequency:: holidays/special occasions only Substance Use Type: denies use Occupational Status: other Housing: apartment Household Members: significant other Family Hx:: Heart Attack, Hypertension ROS Obtained: Yes All systems reviewed & no additional complaints - Constitutional Constitutional: Denies fever(s) - Eyes Eyes: Denies change in vision - ENT Ears,
--- NOTE | 2022-02-11 08:15 | PC.NURSE ---
0815 PT UPDATED AT THIS TIME. AWAITING RESULTS OF XR, NO NEEDS AT THIS TIME
[2022-02-11 08:40] VITALS: BP 123/65; PULSE 78; RESP 16; TEMP 36.6; O2SAT 98
== END 2022-02-11 08:41 | disposition home or self-care (01) ==
PROVIDERS: Emergency Provider Emergency Medicine; PCP Nurse Practitioner Family
DX: S69.92XA Unspecified injury of left wrist, hand and finger(s), initial encounter (principal); W23.0XXA Caught, crushed, jammed, or pinched between moving objects, initial encounter; Y92.69 Other specified industrial and construction area as the place of occurrence of the external cause; Y99.0 Civilian activity done for income or pay; M79.642 Pain in left hand; M79.645 Pain in left finger(s)
CPT/HCPCS: 73130; 99283

== ENCOUNTER 2022-02-18 13:55 | Emergency (ER) | payer OTHER, SELFPAY ==
[2022-02-18 15:00] VITALS: BP 141/91; PULSE 73; RESP 18; TEMP 36.9; O2SAT 99; BMI 25.5
--- NOTE | 2022-02-18 15:14 | HMH.EDUTC ---
[facility] [place] Impression: Exposure to COVID-19 virus, Viral upper respiratory tract infection with cough Disposition: Home, Self-Care Condition on Discharge: Good Instructions: Cough, DI for COVID-19 (Suspected or Confirmed ), Preventing the Spread of Coronavirus Discharge Instructions Additional Instructions: *Monitor Temp, Over the counter Motrin or Tylenol as directed/as needed Tylenol every 4 hours and Motrin every 6 hours (as long as your family doctor has told you that you can take it) for fever or pain. and straight to ER if unable to lower temp less than 101.0 after medication given *Warm salt water gargles may help to soothe the throat *Throat Lozenges *Warm fluids like tea with honey may help to soothe the throat *Sleep elevated *Humidifier/Vaporizer Follow up IMMEDIATELY for new or worsening symptoms or no Noticeable improvement over the next 48-72 hours. 911 for difficulty breathing or swallowing You were tested for today for COVID19 your test result should be back in the next 24-48 hours, you may check your results on the [facility] My Health Portal Make sure to take your Vitamins Vit. C Vit D and Zinc if you can take them Referrals: Liliya Zhou APRN [Primary Care Provider] - As needed Forms: Work/School Release Time of Disposition: 15:23 Medical Decision Making - Kwame Inquiry Pt receiving controlled substance: No Kwame was queried for this patient: No Vital Signs: 02/18/22 15:00 Temperature 98.4 F Temperature Source Oral Pulse Rate [Right Brachial] 73 Respiratory Rate 18 Blood Pressure [Right Arm] 141/91 H Blood Pressure Mean [Right Arm] 107 Blood Pressure Source [Right Arm] Automatic Cuff Blood Pressure Position [Right Arm] Sitting 02 Sat by Pulse Oximetry 99 Oxygen Delivery Method Room Air [facility] [place] - General Stated complaint: sore throat, cough, congestion, h/a, weakness Time Seen by Provider: 02/18/22 15:14 Mode of Arrival: Ambulatory Source of Information: Patient Limitations: No Limitations Description of Symptoms (Recalled from Triage Doc. by RN): PATIENT C/O SINUS CONGESTION, SNEEZING, AND COUGH SINCE LAST NIGHT HEENT Symptoms (Recalled from RN notes): Yes Resp Symptoms (Recalled from RN notes): Yes Skin Symptoms (Recalled from RN notes): No MS Symptoms (Recalled from RN notes): No Functional Status (Recalled from RN notes): WNL - History of Present Illness Provider Complaint: Patient states that she started with nasal congestion, sneezing and cough last night States that she was recently around someone that had COVID and she is worried now that she may have it and wanted to get tested - Related Data Previous Rx's Medication Instructions Recorded Ondansetron [Zofran 4mg ODT] 4 mg PO TIDP PRN #15 tab 10/11/21 norethindrone 1 mg-ethinyl 1 tab PO DAILY #84 tab 02/12/22 estradiol 20 mcg (21)-iron 75 mg (7) tablet Allergies Allergy/AdvReac Type Severity Reaction Status Date / Time cefdinir [CEFDINIR] Allergy Intermediate Verified 02/26/21 19:13 amoxicillin Allergy Verified 02/26/21 19:13 clavulanic acid Allergy Verified 02/28/21 15:00 [From Augmentin] - Worker's Comp Is this a Worker's Comp case?: No [facility] History - Hepatitis A Screen Attestation statement:: This patient has been screened for Hepatitis A risk factors. I have reviewed the patient's past medical history: Yes Medical History: Denies:: Cancer, Diabetes Mellitus Type 1, Diabetes Mellitus Type 2, Internal Pacemaker, MRSA Other Surgeries: No: Pacemaker Amputation: No Fractures: No Comment: nerve removal from back age 14 - Social History Smoking Status: Current every day smoker Tobacco Type: e-cigarettes # Packs/Day (cigarettes): 1 Alcohol Intake: never Alcohol Intake Frequency:: holidays/special occasions only Substance Use Type: denies use Occupational Status: other Housing: apartment Household Members: significant other Family Hx:: Heart Attack, Hyperte
[2022-02-18 15:30] VITALS: BP 141/91; PULSE 73; RESP 18; TEMP 36.9; O2SAT 99
== END 2022-02-18 15:34 | disposition home or self-care (01) ==
PROVIDERS: Emergency Provider Nurse Practitioner; PCP Nurse Practitioner Family
DX: U07.1 COVID-19 (principal); J02.9 Acute pharyngitis, unspecified; R09.89 Other specified symptoms and signs involving the circulatory and respiratory systems; R05.9 Cough, unspecified; R51.9 Headache, unspecified; R53.1 Weakness
CPT/HCPCS: 99212; C9803; G0463; U0003; U0005

== ENCOUNTER 2022-03-13 08:00 | Emergency (ER) | payer SELFPAY ==
[2022-03-13 08:00] VITALS: BP 122/83; PULSE 68; RESP 18; TEMP 36.7; O2SAT 98; BMI 29.8
--- NOTE | 2022-03-13 08:27 | HMH.EDUTC ---
[facility] [place] Clinical Impression: Otitis media Qualifiers: Otitis media type: unspecified Laterality: left Qualified Code(s): H66.92 - Otitis media, unspecified, left ear Disposition: Home, Self-Care Condition on Discharge: Good Instructions: Middle Ear Infection, Middle Ear Infections (Alternative Therapy) Additional Instructions: Take medication as prescribed Return if needed Follow up with your Family Doctor if no improvement or any worsening of symptoms Straight to ER if any life threatening symptoms Prescriptions: methylPREDNISolone [Medrol 4mg tab] 4 mg PO DIRECTED #21 tab Transmission Status: Pending to [facility] Azithromycin [Z-Allen 250mg Tab] 250 mg PO DIRECTED #6 tab Transmission Status: Pending to [facility] Referrals: Liliya Zhou APRN [Primary Care Provider] - As needed Time of Disposition: 08:39 Medical Decision Making - Kwame Inquiry Pt receiving controlled substance: No Kwame was queried for this patient: No Vital Signs: 03/13/22 08:00 Temperature 98.0 F Temperature Source Oral Pulse Rate [Radial] 68 Respiratory Rate 18 Blood Pressure [Right Arm] 122/83 Blood Pressure Mean [Right Arm] 96 Blood Pressure Source [Right Arm] Automatic Cuff Blood Pressure Position [Right Arm] Sitting 02 Sat by Pulse Oximetry 98 Oxygen Delivery Method Room Air - Lab Data Lab results reviewed: Yes: I reviewed the patient's lab results. Medical Decision Narrative: Patient states that she has taken medrol dose pack and azithromycin in the past without complications or reactions [facility] [place] HPI - General Stated complaint: neck pain, lump, nausea Time Seen by Provider: 03/13/22 08:27 Mode of Arrival: Ambulatory Source of Information: Patient Limitations: No Limitations Description of Symptoms (Recalled from Triage Doc. by RN): LYMPHNODE SWOLLEN BEHIND LEFT EAR, PAIN DOWN LEFT SIDE OF NECK HEENT Symptoms (Recalled from RN notes): Yes Resp Symptoms (Recalled from RN notes): No Skin Symptoms (Recalled from RN notes): No MS Symptoms (Recalled from RN notes): No Functional Status (Recalled from RN notes): N/A - History of Present Illness Provider Complaint: Patient state that her lymph nodes behind her left ear and on left side of neck sore and swollen States that hurts when she swallows or tries to eat something hard States that today her ear was hurting too so she came in - Related Data Home Medications Medication Instructions Recorded Confirmed escitalopram oxalate 20 mg tablet 20 mg PO DAILY 02/28/22 02/28/22 Previous Rx's Medication Instructions Recorded Ondansetron [Zofran 4mg ODT] 4 mg PO TIDP PRN #15 tab 10/11/21 norethindrone 1 mg-ethinyl 1 tab PO DAILY #84 tab 02/28/22 estradiol 20 mcg (21)-iron 75 mg (7) tablet Azithromycin [Z-Allen 250mg Tab] 250 mg PO DIRECTED #6 tab 03/13/22 methylPREDNISolone [Medrol 4mg 4 mg PO DIRECTED #21 tab 03/13/22 tab] Allergies Allergy/AdvReac Type Severity Reaction Status Date / Time cefdinir [CEFDINIR] Allergy Intermediate Verified 02/28/22 14:04 amoxicillin Allergy Verified 02/28/22 14:04 clavulanic acid Allergy Verified 02/28/22 14:04 [From Augmentin] - Worker's Comp Is this a Worker's Comp case?: No [facility] History - Hepatitis A Screen Attestation statement:: This patient has been screened for Hepatitis A risk factors. I have reviewed the patient's past medical history: Yes Medical History: Denies:: Cancer, Diabetes Mellitus Type 1, Diabetes Mellitus Type 2, Internal Pacemaker, MRSA Other Surgeries: No: Pacemaker Amputation: No Fractures: No Comment: nerve removal from back age 14 - Social History Smoking Status: Current every day smoker Tobacco Type: e-cigarettes # Packs/Day (cigarettes): 1 Alcohol Intake: never Alcohol Intake Frequency:: holidays/special occasions only Substance Use Type: denies use Occupational Status: other Housing: apartment Household Memb
[2022-03-13 08:35] LABS: UTC Strep Screen (Rapid) Negative (Negative)
[2022-03-13 08:46] VITALS: BP 122/83; PULSE 68; RESP 18; TEMP 36.7; O2SAT 98
== END 2022-03-13 08:48 | disposition home or self-care (01) ==
PROVIDERS: Emergency Provider Nurse Practitioner; PCP Nurse Practitioner Family
DX: H66.92 Otitis media, unspecified, left ear (principal)
CPT/HCPCS: 87880; 99212; G0463

== ENCOUNTER 2022-04-09 13:45 | Emergency (ER) | payer OTHER, SELFPAY ==
--- NOTE | 2022-04-09 14:59 | EXP.UTC ---
Discharge Plan Disposition Patient Disposition: Home, Self-Care Condition: Good Prescriptions Prescriptions: No Action escitalopram oxalate [Lexapro] 20 mg tablet 20 mg PO DAILY norethindrone-e.estradiol-iron 1 mg-20 mcg (21)/75 mg (7) tablet 1 tab PO DAILY Qty: 84 3RF azithromycin 250 MG tablet 250 mg PO DIRECTED Qty: 6 0RF Rx Instructions: Take two (2) tablets on day #1, then one (1) tablet day #2 thru #5 methylprednisolone 4 MG tablet 4 mg PO DIRECTED Qty: 21 0RF Rx Instructions: Take as directed on package instructions ondansetron 4 MG tablet,disintegrating 4 mg PO TIDP PRN (Reason: Nausea And Vomiting) Qty: 15 0RF Referrals Follow up/Referrals: Provider,Referral, MD [Primary Care Provider] - Enter time for follow up Activity Restrictions/Add. Instructions Additional Instructions/Restrictions: *Monitor Temp, Over the counter Motrin or Tylenol as directed/as needed Tylenol every 4 hours and Motrin every 6 hours (as long as your family doctor has told you that you can take it) for fever or pain. and straight to ER if unable to lower temp less than 101.0 after medication given *Warm salt water gargles may help to soothe the throat *Throat Lozenges? *Warm fluids like tea with honey may help to soothe the throat? *Sleep elevated *Humidifier/Vaporizer Follow up IMMEDIATELY for new or worsening symptoms or no Noticeable improvement over the next 48-72 hours. 911 for difficulty breathing or swallowing You were tested for today for COVID19 your test result should be back in the next 24-48 hours, you may check your result on the [facility] My Health Portal Make sure to take your Vitamins Vit. C Vit D and Zinc if you can take them Clinical Impressions Clinical Impression: Upper respiratory infection Stand Alone Forms Stand Alone Forms: [facility] School Release, [facility] Work Release Instructions Patient Instructions: DI for Viral Upper Respiratory Infection -- Adult, COVID-19 Viral Test Discharge ED Provider: Mali Martin [facility] [place] HPI General Stated complaint: Sinus pain, headache, nausea, bodyaches Time Seen by Provider: 04/09/22 15:00 History of Present Illness Provider Complaint: Patient states that she started feeling bad yesterday States that she has been having nasal congestion and pressure, headache, body aches, chills and nausea on and off States that today she was still having symptoms so she came in to get checked out Related Data Home Medications Medication Instructions Recorded Confirmed escitalopram oxalate 20 mg tablet 20 mg PO DAILY 02/28/22 02/28/22 (Lexapro) Previous Rx's Medication Instructions Recorded ondansetron 4 mg disintegrating 4 mg PO TIDP PRN Nausea And 10/11/21 tablet Vomiting #15 tabs norethindrone 1 mg-ethinyl 1 tab PO DAILY control #84 02/28/22 estradiol 20 mcg (21)-iron 75 mg tabs (7) tablet azithromycin 250 mg tablet 250 mg PO DIRECTED #6 tabs 03/13/22 methylprednisolone 4 mg tablet 4 mg PO DIRECTED #21 tabs 03/13/22 Allergies Allergy/AdvReac Type Severity Reaction Status Date / Time cefdinir [CEFDINIR] Allergy Intermediate Verified 04/09/22 15:14 amoxicillin Allergy Verified 04/09/22 15:14 clavulanic acid Allergy Verified 04/09/22 15:14 [From Augmentin] [facility] Social History Smoking Status: Current every day smoker tobacco type: e-cigarettes second hand exposure: No alcohol intake: never substance use type: denies use current occupational status: other household members: significant other housing: apartment current occupational exposures/hazards: No caffeine: No ROS Obtained: Yes All systems reviewed & no additional complaints except as documented and Yes Systems reviewed as appropriate & no additional complaints except as documented Constitutional Constitutional: Reports system reviewed and no additional complaints, except as documented, Reports
[2022-04-09 15:12] VITALS: BP 120/81; PULSE 68; RESP 19; TEMP 36.7; O2SAT 99; BMI 36.2
[2022-04-09 15:17] LABS: UTC Influenza A Antigen Negative (Negative); UTC Influenza B Antigen Negative (Negative)
[2022-04-09 15:59] VITALS: BP 120/81; PULSE 68; RESP 19; TEMP 36.7
== END 2022-04-09 16:01 | disposition home or self-care (01) ==
PROVIDERS: Emergency Provider Nurse Practitioner
DX: J06.9 Acute upper respiratory infection, unspecified (principal); R51.9 Headache, unspecified; R11.0 Nausea; M79.10 Myalgia, unspecified site; R68.83 Chills (without fever); Z20.822 Contact with and (suspected) exposure to COVID-19
CPT/HCPCS: 87804; 99212; C9803; G0463; U0003; U0005

== ENCOUNTER 2022-06-02 21:25 | Emergency (ER) | payer SELFPAY ==
[2022-06-02 21:37] VITALS: BP 154/89; PULSE 93; RESP 16; TEMP 37.1; O2SAT 99; BMI 35.9
--- NOTE | 2022-06-02 21:40 | XR_ITS ---
PROCEDURE INFORMATION: Exam: XR Right Foot Exam date and time: 06/02/2022 9:40 PM Age: 21 years old Clinical indication: Foot and toes; Right; Patient HX: PT C/O pain 2nd-4th toes; Additional info: Fall TECHNIQUE: Imaging protocol: Radiologic exam of the Right foot. Views: 3 or more views. COMPARISON: No relevant prior studies available. FINDINGS: Bones/joints: Normal. Soft tissues: Normal. IMPRESSION: No acute findings.
--- NOTE | 2022-06-02 22:10 | HMH.EDLOEX ---
Discharge Plan Disposition Patient Disposition: Home, Self-Care Prescriptions Prescriptions: No Action escitalopram oxalate [Lexapro] 20 mg tablet 20 mg PO DAILY norethindrone-e.estradiol-iron 1 mg-20 mcg (21)/75 mg (7) tablet 1 tab PO DAILY Qty: 84 3RF azithromycin 250 MG tablet 250 mg PO DIRECTED Qty: 6 0RF Rx Instructions: Take two (2) tablets on day #1, then one (1) tablet day #2 thru #5 methylprednisolone 4 MG tablet 4 mg PO DIRECTED Qty: 21 0RF Rx Instructions: Take as directed on package instructions ondansetron 4 MG tablet,disintegrating 4 mg PO TIDP PRN (Reason: Nausea And Vomiting) Qty: 15 0RF Referrals Follow up/Referrals: Provider,Referral, MD [Primary Care Provider] - See instructions Clinical Impressions Clinical Impression: Foot sprain Instructions Patient Instructions: DI for Foot Sprain Discharge ED Provider: Romero Lazo Lower Extremity Injury HPI General Chief Complaint: Extremity Injury, Lower Stated Complaint: AO 06/02/22 1500 Injury right foot Time Seen by Provider: 06/02/22 22:10 Mode of Arrival: Ambulatory Source of Information: Patient and Medical Record Limitations: No Limitations Description of Symptoms (Recalled from ER Triage Doc. by RN): Pt states that she slipped off of the running board on her fathers truck at 1500 today. Pt states she landed on her right toes and her foot bent forward. Denies hearing any popping or any rolling of her ankle. States that she tried to take tylenol and use heat packs and ice at home but the pain is still severe when ambulating. History of Present Illness HPI Narrative: pt with acute injury to rt foot tonight as missed step - no ankle pain -but has progressive metatarsal pain and dec wt bearing complaint: foot injury Onset (ago): hour(s) Injury: Right: foot Type of Injury: hyperextension Place: home Severity: moderate Exacerbating factors: weight bearing and movement Associated symptoms: able to partially bear weight Other symptoms: none Treatments prior to arrival: cold therapy Related Data Home Medications Medication Instructions Recorded Confirmed escitalopram oxalate 20 mg tablet 20 mg PO DAILY 02/28/22 02/28/22 (Lexapro) Previous Rx's Medication Instructions Recorded ondansetron 4 mg disintegrating 4 mg PO TIDP PRN Nausea And 10/11/21 tablet Vomiting #15 tabs norethindrone 1 mg-ethinyl 1 tab PO DAILY control #84 02/28/22 estradiol 20 mcg (21)-iron 75 mg tabs (7) tablet azithromycin 250 mg tablet 250 mg PO DIRECTED #6 tabs 03/13/22 methylprednisolone 4 mg tablet 4 mg PO DIRECTED #21 tabs 03/13/22 Allergies Allergy/AdvReac Type Severity Reaction Status Date / Time cefdinir [CEFDINIR] Allergy Intermediate Verified 04/09/22 15:14 amoxicillin Allergy Verified 04/09/22 15:14 clavulanic acid Allergy Verified 04/09/22 15:14 [From Augmentin] [facility] Social History (Updated 04/14/22 @ 08:07 by Mali Martin APRN) Smoking Status: Current every day smoker tobacco type: e-cigarettes second hand exposure: No alcohol intake: never substance use type: denies use current occupational status: other Travel in the last 8 weeks: None household members: significant other housing: apartment current occupational exposures/hazards: No caffeine: No ROS Obtained: Yes All systems reviewed & no additional complaints except as documented Physical Exam General General appearance: alert Head Head exam: normocephalic Eye Eye exam: Present PERRL and EOMI ENT ENT exam: Present mucous membranes moist Neck Neck exam: Present trachea midline Respiratory Respiratory exam: Absent respiratory distress Cardiovascular Cardiovascular exam: Present regular rate Abdominal Exam Abdominal exam: Present soft Expanded Lower Extremity Exam Right: Foot/toe exam: Present tenderness and swelling; Absent full ROM Neurovascular/Tendon exa
[2022-06-02 23:00] VITALS: BP 127/77; PULSE 86; RESP 16; TEMP 36.8; O2SAT 99
== END 2022-06-02 23:02 | disposition home or self-care (01) ==
PROVIDERS: Emergency Provider Emergency Medicine
DX: S93.601A Unspecified sprain of right foot, initial encounter (principal); V48.4XXA Person boarding or alighting a car injured in noncollision transport accident, initial encounter; Z88.1 Allergy status to other antibiotic agents
CPT/HCPCS: 73630; 99283

== ENCOUNTER 2022-07-02 19:06 | Emergency (ER) | payer OTHER, SELFPAY ==
[2022-07-02 20:05] VITALS: BP 129/76; PULSE 81; RESP 19; TEMP 36.7; O2SAT 98; BMI 38.0
--- NOTE | 2022-07-02 20:24 | EXP.UTC ---
Discharge Plan Disposition Patient Disposition: Home, Self-Care Condition: Good Prescriptions Prescriptions: New polymyxin B sulf-trimethoprim [Polytrim] 10,000 unit- 1 mg/mL drops 2 drp ophthalmic (eye) Q6H 7 Days Qty: 10 0RF Rx Instructions: apply to left eye as directed while awake; do not exceed 6 doses in 24 hours No Action escitalopram oxalate [Lexapro] 20 mg tablet 20 mg PO DAILY norethindrone-e.estradiol-iron 1 mg-20 mcg (21)/75 mg (7) tablet 1 tab PO DAILY Qty: 84 3RF azithromycin 250 MG tablet 250 mg PO DIRECTED Qty: 6 0RF Rx Instructions: Take two (2) tablets on day #1, then one (1) tablet day #2 thru #5 methylprednisolone 4 MG tablet 4 mg PO DIRECTED Qty: 21 0RF Rx Instructions: Take as directed on package instructions ondansetron 4 MG tablet,disintegrating 4 mg PO TIDP PRN (Reason: Nausea And Vomiting) Qty: 15 0RF Referrals Follow up/Referrals: Provider,Referral, MD [Primary Care Provider] - See instructions Activity Restrictions/Add. Instructions Additional Instructions/Restrictions: Wash hands well before and after applying drops May use warm water and baby shampoo to clear matting and drainage from eyes Return if needed Follow up with Eye Doctor if no improvement or any worsening of symptoms Clinical Impressions Clinical Impression: Conjunctivitis Stand Alone Forms Stand Alone Forms: Work/School Release Instructions Patient Instructions: Conjunctivitis, DI for Conjunctivitis Discharge ED Provider: Mali Martin [facility] [place] HPI General Stated complaint: left eye Mode of Arrival: Ambulatory Source of Information: Patient Limitations: No Limitations Time Seen by Provider: 07/02/22 20:24 Description of Symptoms (Recalled from Triage Doc. by RN): PATIENT C/O LEFT PINK EYE AND SINUS CONGESTION X 2 DAYS HEENT Symptoms (Recalled from RN notes): Yes Resp Symptoms (Recalled from RN notes): No Skin Symptoms (Recalled from RN notes): No MS Symptoms (Recalled from RN notes): No Functional Status (Recalled from RN notes): WNL History of Present Illness Provider Complaint: Patient states that she has been having irritation and drainage in left eye and everyone she has been around has had pink eye and she thinks she may have it too Related Data Home Medications Medication Instructions Recorded Confirmed escitalopram oxalate 20 mg tablet 20 mg PO DAILY 07/15/22 07/15/22 (Lexapro) Previous Rx's Medication Instructions Recorded ondansetron 4 mg disintegrating 4 mg PO TIDP PRN Nausea And 10/11/21 tablet Vomiting #15 tabs norethindrone 1 mg-ethinyl 1 tab PO DAILY control #84 02/28/22 estradiol 20 mcg (21)-iron 75 mg tabs (7) tablet azithromycin 250 mg tablet 250 mg PO DIRECTED #6 tabs 03/13/22 methylprednisolone 4 mg tablet 4 mg PO DIRECTED #21 tabs 03/13/22 polymyxin B sulfate 10,000 2 drp ophthalmic (eye) Q6H 7 days 07/02/22 unit-trimethoprim 1 mg/mL eye #10 mL drops (Polytrim) Allergies Allergy/AdvReac Type Severity Reaction Status Date / Time cefdinir [CEFDINIR] Allergy Intermediate Verified 04/09/22 15:14 amoxicillin Allergy Verified 04/09/22 15:14 clavulanic acid Allergy Verified 04/09/22 15:14 [From Augmentin] Worker's Comp Is this a Worker's Comp case?: No [facility] Medical History (Updated 07/02/22 @ 20:28 by Mali Martin APRN) Anxiety Depression Social History (Updated 07/02/22 @ 20:21 by Belen Maurer RN) Smoking Status: Current every day smoker tobacco type: e-cigarettes second hand exposure: No alcohol intake: never substance use type: denies use current occupational status: other Travel in the last 8 weeks: None household members: significant other housing: apartment current occupational exposures/hazards: No caffeine: No ROS Obtained: Yes All systems reviewed & no additional complaints except as documented and Yes Systems reviewed as appropr
[2022-07-02 20:30] VITALS: BP 129/76; PULSE 81; RESP 19; TEMP 36.7; O2SAT 98
== END 2022-07-02 20:35 | disposition home or self-care (01) ==
PROVIDERS: Emergency Provider Nurse Practitioner
DX: H10.9 Unspecified conjunctivitis (principal); R11.2 Nausea with vomiting, unspecified; R09.89 Other specified symptoms and signs involving the circulatory and respiratory systems; F32.A Depression, unspecified; F41.9 Anxiety disorder, unspecified; F17.290 Nicotine dependence, other tobacco product, uncomplicated; Z79.899 Other long term (current) drug therapy; Z88.0 Allergy status to penicillin; Z88.8 Allergy status to other drugs, medicaments and biological substances
CPT/HCPCS: 99213; G0463

== ENCOUNTER 2022-07-16 18:53 | Emergency (ER) | payer SELFPAY ==
[2022-07-16 20:50] VITALS: BP 121/78; PULSE 74; RESP 20; TEMP 36.7; O2SAT 98; BMI 39.2
--- NOTE | 2022-07-16 21:04 | EXP.UTC ---
Discharge Plan Disposition Patient Disposition: Home, Self-Care Condition: Good Prescriptions Prescriptions: No Action escitalopram oxalate [Lexapro] 20 mg tablet 20 mg PO DAILY norethindrone-e.estradiol-iron 1 mg-20 mcg (21)/75 mg (7) tablet 1 tab PO DAILY Qty: 84 3RF azithromycin 250 MG tablet 250 mg PO DIRECTED Qty: 6 0RF Rx Instructions: Take two (2) tablets on day #1, then one (1) tablet day #2 thru #5 methylprednisolone 4 MG tablet 4 mg PO DIRECTED Qty: 21 0RF Rx Instructions: Take as directed on package instructions ondansetron 4 MG tablet,disintegrating 4 mg PO TIDP PRN (Reason: Nausea And Vomiting) Qty: 15 0RF polymyxin B sulf-trimethoprim [Polytrim] 10,000 unit- 1 mg/mL drops 2 drp ophthalmic (eye) Q6H 7 Days Qty: 10 0RF Rx Instructions: apply to left eye as directed while awake; do not exceed 6 doses in 24 hours Referrals Follow up/Referrals: Provider,Referral, [Primary Care Provider] - See instructions Activity Restrictions/Add. Instructions Additional Instructions/Restrictions: *Monitor Temp, Over the counter Motrin or Tylenol as directed/as needed Tylenol every 4 hours and Motrin every 6 hours (as long as your family doctor has told you that you can take it) for fever or pain. and straight to ER if unable to lower temp less than 101.0 after medication given *Warm salt water gargles may help to soothe the throat *Throat Lozenges? *Warm fluids like tea with honey may help to soothe the throat? *Sleep elevated *Humidifier/Vaporizer Your throat swab was sent for culture. Those results are typically sent to your primary care. Be sure to follow up in 2-3 days with your family doctor/primary care physician if no improvement so they can review those result and treat if necessary. If you don?t have a primary care doctor, I recommend you get one but in the mean time, you will have to return to a walk in clinic Follow up IMMEDIATELY for new or worsening symptoms or no Noticeable improvement over the next 48-72 hours. 911 for difficulty breathing or swallowing Clinical Impressions Clinical Impression: Strep throat Stand Alone Forms Stand Alone Forms: Work/School Release Instructions Patient Instructions: Strep Throat, DI for Strep Throat Discharge ED Provider: Mali Martin [facility] [place] HPI General Stated complaint: sore throar,cough,congestion Mode of Arrival: Ambulatory Source of Information: Patient Limitations: No Limitations Time Seen by Provider: 07/16/22 21:04 Description of Symptoms (Recalled from Triage Doc. by RN): PATIENT C/O BODY ACHES, HEADACHE AND SORE THROAT SINCE YESTERDAY HEENT Symptoms (Recalled from RN notes): Yes Resp Symptoms (Recalled from RN notes): No Skin Symptoms (Recalled from RN notes): No MS Symptoms (Recalled from RN notes): No Functional Status (Recalled from RN notes): WNL History of Present Illness Provider Complaint: Patient states that she started feeling bad yesterday State that she has been having body aches, chills, sore throat and feeling achy all over states that today she wasnt feeling any better so she came in to get checked Related Data Home Medications Medication Instructions Recorded Confirmed escitalopram oxalate 20 mg tablet 20 mg PO DAILY 02/28/22 02/28/22 (Lexapro) Previous Rx's Medication Instructions Recorded ondansetron 4 mg disintegrating 4 mg PO TIDP PRN Nausea And 10/11/21 tablet Vomiting #15 tabs norethindrone 1 mg-ethinyl 1 tab PO DAILY control #84 02/28/22 estradiol 20 mcg (21)-iron 75 mg tabs (7) tablet azithromycin 250 mg tablet 250 mg PO DIRECTED #6 tabs 03/13/22 methylprednisolone 4 mg tablet 4 mg PO DIRECTED #21 tabs 03/13/22 polymyxin B sulfate 10,000 2 drp ophthalmic (eye) Q6H 7 days 07/02/22 unit-trimethoprim 1 mg/mL eye #10 mL drops (Polytrim) Allergies Allergy/AdvReac Type Severity Reaction Status Date / Time cefdinir [
[2022-07-16 21:10] LABS: UTC Influenza A Antigen Negative (Negative); UTC Influenza B Antigen Negative (Negative)
[2022-07-16 21:14] LABS: UTC Strep Screen (Rapid) Positive (Negative)
[2022-07-16 21:15] VITALS: BP 121/78; PULSE 74; RESP 20; TEMP 36.7; O2SAT 98
== END 2022-07-16 21:23 | disposition home or self-care (01) ==
PROVIDERS: Emergency Provider Nurse Practitioner
DX: J02.0 Streptococcal pharyngitis (principal)
CPT/HCPCS: 87804; 87880; 99212; G0463

== ENCOUNTER → 2022-08-05 06:25 | Outpatient (CLI) | payer OTHER, SELFPAY | LOC: LAB.DROPOF 08-06 06:26 | PROVIDERS: PCP Nurse Practitioner Family; Visit Provider Nurse Practitioner Family | DX: R05.9 Cough, unspecified (principal) | CPT/HCPCS: C9803; U0003; U0005 ==

== ENCOUNTER 2022-08-15 09:16 | Emergency (ER) | payer SELFPAY ==
[2022-08-15 09:44] VITALS: BP 123/74; PULSE 60; RESP 19; TEMP 36.9; O2SAT 98; BMI 36.2
--- NOTE | 2022-08-15 10:18 | EXP.UTC ---
Discharge Plan Disposition Patient Disposition: Home, Self-Care Condition: Good Prescriptions Prescriptions: New methylprednisolone [Medrol (Allen)] 4 mg tablets,dose pack See Rx Instructions .Route .COMPLEX 6 Days Qty: 21 0RF Rx Instructions: taper pack; No Action norethindrone-e.estradiol-iron 1 mg-20 mcg (21)/75 mg (7) tablet 1 tab PO DAILY Qty: 84 3RF escitalopram oxalate [Lexapro] 10 mg tablet 10 mg PO DAILY Referrals Follow up/Referrals: Radha Owusu APRN [Primary Care Provider] - See instructions Activity Restrictions/Add. Instructions Additional Instructions/Restrictions: Start oral steriods tomorrow *Ibuprofen amanda 6 hours with meal as needed for pain/inflammation *Remember you had a Toradol shot in the clinic today, which is similar to Motrin *Not additional anti-inflammatory like motrin, aleve, advil with the above amount of ibuprofen. You can still take Tylenol every 4 hours as needed if you need something else for pain *Ice 20 minutes every 2 hours for the first 48 hours after the initial injury followed by moist heat every 20 minutes 3-4 times a day to affected area *Keep this area active, no movement leads to more stiffness, However take it easy and avoid heavy lifting pushing or pulling *Follow up with you family doctor if no improvement for further treatment Clinical Impressions Clinical Impression: Sciatica Instructions Patient Instructions: Maria Del Rosario DI for Sciatica Discharge ED Provider: Mali Martin [facility] [place] General Stated complaint: Right leg/Hip pain Mode of Arrival: Ambulatory Source of Information: Patient Limitations: No Limitations Time Seen by Provider: 08/15/22 10:18 Description of Symptoms (Recalled from Triage Doc. by RN): pt comes in with c/o right leg pain from hip to knee. pt states she has been helping her parents omve for the past few days but her leg began to bother her yesterday morning. HEENT Symptoms (Recalled from RN notes): No Resp Symptoms (Recalled from RN notes): No Skin Symptoms (Recalled from RN notes): No MS Symptoms (Recalled from RN notes): Yes Functional Status (Recalled from RN notes): n/a History of Present Illness Provider Complaint: Patient states that she has hx of sciatca States that she was helping her parents move a few days ago and started having pain in her right hip that shoots down to her knee with movement States that she is unable to lay or sit on that side due to the pain Denies known injury States that it feels like it did when she had Sciatica but her back isnt hurting Related Data Home Medications Medication Instructions Recorded Confirmed escitalopram oxalate 10 mg tablet 10 mg PO DAILY Anxiety 08/15/22 08/15/22 (Lexapro) Previous Rx's Medication Instructions Recorded norethindrone 1 mg-ethinyl 1 tab PO DAILY control #84 02/28/22 estradiol 20 mcg (21)-iron 75 mg tabs (7) tablet methylprednisolone 4 mg tablets in See Rx Instructions .Route 08/15/22 a dose pack (Medrol (Allen)) .COMPLEX 6 days #21 tabs Allergies Allergy/AdvReac Type Severity Reaction Status Date / Time cefdinir [CEFDINIR] Allergy Intermediate Verified 08/15/22 09:47 amoxicillin Allergy Verified 08/15/22 09:47 clavulanic acid Allergy Verified 08/15/22 09:47 [From Augmentin] Worker's Comp Is this a Worker's Comp case?: No [facility] Disclaimer: The information contained in this section may have been updated after the patient was seen, as this information can be updated by other users. Medical History (Updated 08/15/22 @ 10:37 by Mali Martin APRN) Anxiety Depression Social History Smoking Status: Current every day smoker tobacco type: e-cigarettes second hand exposure: No alcohol intake: never substance use type: denies use current occupational status: other Travel in the last 8 weeks: None household members: significant other housing:
[2022-08-15 10:54] VITALS: BP 123/74; PULSE 60; RESP 19; TEMP 36.9
== END 2022-08-15 10:59 | disposition home or self-care (01) ==
PROVIDERS: Emergency Provider Nurse Practitioner; PCP Nurse Practitioner Family
DX: M54.31 Sciatica, right side (principal)
CPT/HCPCS: 99212; G0463

== ENCOUNTER 2022-09-26 17:01 | Emergency (ER) | payer SELFPAY ==
[2022-09-26 17:25] VITALS: BP 129/74; PULSE 68; RESP 20; TEMP 37; O2SAT 98; BMI 38.9
[2022-09-26 17:45] LABS: UTC Strep Screen (Rapid) Negative (Negative)
[2022-09-26 17:46] LABS: UTC Influenza A Antigen Negative (Negative); UTC Influenza B Antigen Negative (Negative)
--- NOTE | 2022-09-26 17:57 | EXP.UTC ---
Discharge Plan Disposition Patient Disposition: Home, Self-Care Condition: Good Prescriptions Prescriptions: New oxhcbgpqhlimuhe-jnunoqowg-MB [Bromfed DM] 2-30-10 mg/5 mL syrup 5 ml PO Q4H PRN (Reason: Cough) Qty: 180 0RF ondansetron 8 mg tablet,disintegrating 8 mg PO TID PRN (Reason: Nausea) Qty: 30 0RF No Action escitalopram oxalate 20 mg tablet 20 mg PO DAILY Qty: 30 1RF norethindrone-e.estradiol-iron 1 mg-20 mcg (21)/75 mg (7) tablet 1 tab PO DAILY Qty: 84 3RF aripiprazole [Abilify] 5 mg tablet 5 mg PO QHS Qty: 30 1RF Referrals Follow up/Referrals: Radha Owusu APRN [Primary Care Provider] - See instructions Clinical Impressions Clinical Impression: Acute viral syndrome Instructions Patient Instructions: DI for Viral Upper Respiratory Infection -- Adult Discharge ED Provider[place]ita Thompson [facility] [place] General Stated complaint: SORE THROAT,castro VOMITING Mode of Arrival: Ambulatory Source of Information: Patient Limitations: No Limitations Time Seen by Provider: 09/26/22 18:17 Description of Symptoms (Recalled from Triage Doc. by RN): nausea, vomiting, sore throat, congestion, stomach pain, and body aches HEENT Symptoms (Recalled from RN notes): Yes Resp Symptoms (Recalled from RN notes): No Skin Symptoms (Recalled from RN notes): No MS Symptoms (Recalled from RN notes): No Functional Status (Recalled from RN notes): n/a History of Present Illness Provider Complaint: Nausea, vomiting, sore throat, congestion, cough, body aches, chills. No fever. Started last night. Related Data Previous Rx's Medication Instructions Recorded norethindrone 1 mg-ethinyl 1 tab PO DAILY control #84 02/28/22 estradiol 20 mcg (21)-iron 75 mg tabs (7) tablet escitalopram oxalate 20 mg tablet 20 mg PO DAILY #30 tabs 08/22/22 aripiprazole 5 mg tablet (Abilify) 5 mg PO QHS #30 tabs 09/22/22 kvrwddcxalpoybu-stketbcownrnajw-MP 5 ml PO Q4H PRN Cough #180 mL 09/26/22 2 mg-30 mg-10 mg/5 mL oral syrup (Bromfed DM) ondansetron 8 mg disintegrating 8 mg PO TID PRN Nausea #30 tabs 09/26/22 tablet Allergies Allergy/AdvReac Type Severity Reaction Status Date / Time cefdinir [CEFDINIR] Allergy Intermediate Verified 09/26/22 17:48 amoxicillin Allergy Verified 09/26/22 17:48 clavulanic acid Allergy Verified 09/26/22 17:48 [From Augmentin] Worker's Comp Is this a Worker's Comp case?: No PFSH COUNTS INCLUDE 234 BEDS AT THE [facility] Disclaimer: The information contained in this section may have been updated after the patient was seen, as this information can be updated by other users. Medical History (Updated 09/26/22 @ 18:21 by TR Cantrell) Anxiety Bipolar II disorder Depression Family History FHx: mental illness Grandmother Grandmother Father Hypertension Father Social History Smoking Status: Current every day smoker tobacco type: e-cigarettes second hand exposure: No alcohol intake: current counseling given: No substance use type: marijuana counseling given: No (she does this rarely and sporadically ) current occupational status: unemployed and other details: recently got fired for missing work Travel in the last 8 weeks: None adopted: No caregiver/support person: No foster care: No household members: significant other housing: apartment lives independently: Yes marital status: number of children: 0 number of grandchildren: 0 education level: high school service: No shelter: No current occupational exposures/hazards: No pets and animals: Yes pets and animals: hamster(s) and other details: bearded dragons; gecko Hx Recent Travel: No sexually active: Yes are you practicing safe sex: Yes caffeine: No physical activity: none anusha/hinduism: Other special anusha needs: Yes (she is [employer]) working s
[2022-09-26 18:34] VITALS: BP 129/74; PULSE 68; RESP 20; TEMP 37; O2SAT 98
== END 2022-09-26 18:34 | disposition home or self-care (01) ==
PROVIDERS: Emergency Provider Physician Assistant; PCP Nurse Practitioner Family
DX: B34.9 Viral infection, unspecified (principal); J02.9 Acute pharyngitis, unspecified; R51.9 Headache, unspecified; R11.10 Vomiting, unspecified
CPT/HCPCS: 87804; 87880; 99212; 99213; G0463

== ENCOUNTER 2022-12-05 18:52 | Emergency (ER) | payer SELFPAY ==
[2022-12-05 19:05] VITALS: BP 130/72; PULSE 71; RESP 16; TEMP 36.8; O2SAT 99; BMI 37.4
--- NOTE | 2022-12-05 19:10 | EXP.UTC ---
Discharge Plan Disposition Patient Disposition: Home, Self-Care Condition: Good Prescriptions Prescriptions: New methylprednisolone [Medrol (Allen)] 4 mg tablets,dose pack 4 mg PO DIRECTED Qty: 21 0RF No Action norethindrone-e.estradiol-iron 1 mg-20 mcg (21)/75 mg (7) tablet 1 tab PO DAILY Qty: 84 3RF aripiprazole [Abilify] 5 mg tablet 5 mg PO QHS Qty: 30 1RF trazodone 50 mg tablet 50 mg PO QHS PRN (Reason: sleep) Qty: 30 1RF escitalopram oxalate 20 mg tablet 20 mg PO DAILY Qty: 30 1RF sntmildlmozbimz-xrtnavscv-FG [Bromfed DM] 2-30-10 mg/5 mL syrup 5 ml PO Q4H PRN (Reason: Cough) Qty: 180 0RF ondansetron 8 mg tablet,disintegrating 8 mg PO TID PRN (Reason: Nausea) Qty: 30 0RF Referrals Follow up/Referrals: Violette Thompson APRN [Primary Care Provider] - See instructions Activity Restrictions/Add. Instructions Additional Instructions/Restrictions: Can use small amounts of hydrocortisone topically as well if needed Clinical Impressions Clinical Impression: Allergic dermatitis due to poison harriet Instructions Patient Instructions: DI for Poison Harriet Allergy Discharge ED Provider: Martita Thompson [facility] General Stated complaint: poision Harriet on lip Mode of Arrival: Ambulatory Limitations: No Limitations Time Seen by Provider: 12/05/22 19:10 Description of Symptoms (Recalled from Triage Doc. by RN): poision harriet on lip HEENT Symptoms (Recalled from RN notes): No Resp Symptoms (Recalled from RN notes): No Skin Symptoms (Recalled from RN notes): Yes MS Symptoms (Recalled from RN notes): No Functional Status (Recalled from RN notes): n/a History of Present Illness Provider Complaint: Poison harriet on upper lip x 3 days. Also on right hand. Onset (ago): day(s) (3) Location: face, right and upper extremity Relieving factors: none Exacerbating factors: none Related Data Previous Rx's Medication Instructions Recorded norethindrone 1 mg-ethinyl 1 tab PO DAILY control #84 02/28/22 estradiol 20 mcg (21)-iron 75 mg tabs (7) tablet aqjjttblurortbd-vvadkmkoszvyvtm-LT 5 ml PO Q4H PRN Cough #180 mL 09/26/22 2 mg-30 mg-10 mg/5 mL oral syrup (Bromfed DM) ondansetron 8 mg disintegrating 8 mg PO TID PRN Nausea #30 tabs 09/26/22 tablet aripiprazole 5 mg tablet (Abilify) 5 mg PO QHS #30 tabs 11/25/22 escitalopram oxalate 20 mg tablet 20 mg PO DAILY #30 tabs 11/25/22 trazodone 50 mg tablet 50 mg PO QHS PRN sleep #30 tabs 11/25/22 methylprednisolone 4 mg tablets in 4 mg PO DIRECTED #21 tabs 12/05/22 a dose pack (Medrol (Allen)) Allergies Allergy/AdvReac Type Severity Reaction Status Date / Time cefdinir [CEFDINIR] Allergy Intermediate Verified 11/25/22 10:57 amoxicillin Allergy Verified 11/25/22 10:57 clavulanic acid Allergy Verified 11/25/22 10:57 [From Augmentin] Worker's Comp Is this a Worker's Comp case?: No [facility] Disclaimer: The information contained in this section may have been updated after the patient was seen, as this information can be updated by other users. Medical History (Updated 12/05/22 @ 19:20 by TR Cantrell) Anxiety Bipolar II disorder Depression Family History FHx: mental illness Grandmother Grandmother Father Hypertension Father Social History Smoking Status: Current every day smoker tobacco type: e-cigarettes second hand exposure: No alcohol intake: current counseling given: No substance use type: marijuana counseling given: No (she does this rarely and sporadically ) current occupational status: unemployed and other details: recently got fired for missing work Travel in the last 8 weeks: None adopted: No caregiver/support person: No foster care: No household members: significant other housing: apartment lives independently: Yes marital status: mi
[2022-12-05 19:31] VITALS: BP 130/70; PULSE 71; RESP 16; TEMP 36.8
== END 2022-12-05 19:32 | disposition home or self-care (01) ==
PROVIDERS: Emergency Provider Physician Assistant; PCP Nurse Practitioner
DX: L23.7 Allergic contact dermatitis due to plants, except food (principal); F17.290 Nicotine dependence, other tobacco product, uncomplicated
CPT/HCPCS: 96372; 99212; 99214; G0463

== ENCOUNTER 2023-01-14 16:54 | Emergency (ER) | payer SELFPAY ==
[2023-01-14 16:55] VITALS: BP 143/94; PULSE 86; RESP 16; TEMP 36.6; O2SAT 99; BMI 34.7
--- NOTE | 2023-01-14 17:13 | EXP.UTC ---
Discharge Plan Disposition Patient Disposition: Home, Self-Care Condition: Good Prescriptions Prescriptions: New nystatin 100,000 unit/gram cream 1 applic topical TID Qty: 30 0RF Rx Instructions: apply to area as directed No Action norethindrone-e.estradiol-iron 1 mg-20 mcg (21)/75 mg (7) tablet 1 tab PO DAILY Qty: 84 3RF trazodone 50 mg tablet 50 mg PO QHS PRN (Reason: sleep) Qty: 30 1RF aripiprazole [Abilify] 5 mg tablet 5 mg PO QHS Qty: 30 1RF escitalopram oxalate 20 mg tablet 20 mg PO DAILY Qty: 30 1RF kidryfclogetqwg-wzngsawaf-DX [Bromfed DM] 2-30-10 mg/5 mL syrup 5 ml PO Q4H PRN (Reason: Cough) Qty: 180 0RF ondansetron 8 mg tablet,disintegrating 8 mg PO TID PRN (Reason: Nausea) Qty: 30 0RF methylprednisolone [Medrol (Allen)] 4 mg tablets,dose pack 4 mg PO DIRECTED Qty: 21 0RF Referrals Follow up/Referrals: Provider,Referral, MD [Primary Care Provider] - See instructions Activity Restrictions/Add. Instructions Additional Instructions/Restrictions: Wear breathable, cotton underwear Wash and dry yourself thoroughly after swimming or working out. Avoid scented hygiene products on your perianal area. Make sure to clean area after each bowel movement Use cream as prescribed Do not scratch Follow up with your Family Doctor if no improvement or any worsening of symptoms Clinical Impressions Clinical Impression: Yeast infection of the skin Instructions Patient Instructions: Nystatin Topical Discharge ED Provider: Mali Martin [facility] General Stated complaint: Possible UTI Mode of Arrival: Ambulatory Source of Information: Patient Limitations: No Limitations Time Seen by Provider: 01/14/23 17:13 Description of Symptoms (Recalled from Triage Doc. by RN): Patient complains of possibly having hemmrhoids. States she has bleeding when she wipes and sits down. HEENT Symptoms (Recalled from RN notes): No Resp Symptoms (Recalled from RN notes): No Skin Symptoms (Recalled from RN notes): No MS Symptoms (Recalled from RN notes): No Functional Status (Recalled from RN notes): wnl History of Present Illness Provider Complaint: Patient states that she thinks she may have hemorrhoids States that she has been irritation, itching and burning in her rectal area and noticed a little blood at times on her toilet paper/underwear not sure if it is coming from the hemorrhoid or where she has been scratching Related Data Previous Rx's Medication Instructions Recorded norethindrone 1 mg-ethinyl 1 tab PO DAILY control #84 02/28/22 estradiol 20 mcg (21)-iron 75 mg tabs (7) tablet kthejdbvawvqwlw-zoxdooqdvdxsfoh-KP 5 ml PO Q4H PRN Cough #180 mL 09/26/22 2 mg-30 mg-10 mg/5 mL oral syrup (Bromfed DM) ondansetron 8 mg disintegrating 8 mg PO TID PRN Nausea #30 tabs 09/26/22 tablet trazodone 50 mg tablet 50 mg PO QHS PRN sleep #30 tabs 11/25/22 methylprednisolone 4 mg tablets in 4 mg PO DIRECTED #21 tabs 12/05/22 a dose pack ([employer] (Allen)) aripiprazole 5 mg tablet (Abilify) 5 mg PO QHS #30 tabs 12/30/22 escitalopram oxalate 20 mg tablet 20 mg PO DAILY #30 tabs 12/30/22 nystatin 100,000 unit/gram topical 1 applic topical TID #30 grams 01/14/23 cream Allergies Allergy/AdvReac Type Severity Reaction Status Date / Time cefdinir [CEFDINIR] Allergy Intermediate Verified 11/25/22 10:57 amoxicillin Allergy Verified 11/25/22 10:57 clavulanic acid Allergy Verified 11/25/22 10:57 [From Augmentin] Worker's Comp Is this a Worker's Comp case?: No [facility] Disclaimer: The information contained in this section may have been updated after the patient was seen, as this information can be updated by other users. Medical History (Updated 01/14/23 @ 17:38 by Mali Martin APRN) Anxiety Bipolar II disorder Depression Family History Grandmother FHx: mental illness Grandmother FHx: mental
[2023-01-14 17:42] VITALS: BP 143/94; PULSE 86; RESP 16; TEMP 36.6; O2SAT 99
== END 2023-01-14 17:43 | disposition home or self-care (01) ==
PROVIDERS: Emergency Provider Nurse Practitioner
DX: B37.2 Candidiasis of skin and nail (principal); F17.290 Nicotine dependence, other tobacco product, uncomplicated; F31.81 Bipolar II disorder; F41.9 Anxiety disorder, unspecified
CPT/HCPCS: 99212; 99214; G0463

== ENCOUNTER 2023-02-05 11:25 | Emergency (ER) | payer SELFPAY ==
[2023-02-05 11:30] VITALS: BP 132/86; PULSE 94; RESP 20; TEMP 37.1; O2SAT 100; BMI 34.9
--- NOTE | 2023-02-05 11:46 | ECG_ITS ---
APPROVED REPORT Exam: Resting ECG HR:69 bpm ECG Measurements Heart Rate 69 AXES MO 148 P 45 QRSd 102 QRS 29 QT 388 T 18 QTc 406 Conclusion SINUS RHYTHM WITH MARKED SINUS ARRHYTHMIA MODERATE ST DEPRESSION [0.05+ mV ST DEPRESSION] ABNORMAL ECG UNCONFIRMED REPORT Electronically signed by : Kane Santiago MD 02/05/2023 20:06:42
--- NOTE | 2023-02-05 12:09 | EXP.UTC ---
Discharge Plan Disposition Patient Disposition: Home, Self-Care Condition: Good Prescriptions Prescriptions: No Action norethindrone-e.estradiol-iron 1 mg-20 mcg (21)/75 mg (7) tablet 1 tab PO DAILY Label Comments: TAKE 1 TABLET 1 TIME EACH DAY FOR CONTROL escitalopram oxalate 20 mg tablet 20 mg PO DAILY Label Comments: TAKE 1 TABLET 1 TIME EACH DAY aripiprazole 5 mg tablet 5 mg PO DAILY Label Comments: TAKE 1 TABLET 1 TIME EACH DAY AT BEDTIME Referrals Follow up/Referrals: Provider,Referral, MD [Primary Care Provider] - See instructions Activity Restrictions/Add. Instructions Additional Instructions/Restrictions: Drink plenty of fluids. Go home and rest. It would be best if you rested tomorrow too. Follow up with your regular doctor. If you have any more episodes of this, go to the emergency room. GO TO THE ER FOR ANY WORSENING SYMPTOMS Clinical Impressions Clinical Impression: Near syncope Stand Alone Forms Stand Alone Forms: Work/School Release Discharge ED Provider: Bryan Michel [facility] General Stated complaint: Almost passed out at work 02/05 Mode of Arrival: Ambulatory Source of Information: Patient Limitations: No Limitations Time Seen by Provider: 02/05/23 12:09 HEENT Symptoms (Recalled from RN notes): No Resp Symptoms (Recalled from RN notes): No Skin Symptoms (Recalled from RN notes): No MS Symptoms (Recalled from RN notes): No Functional Status (Recalled from RN notes): WNL History of Present Illness Provider Complaint: PATIENT STATES SHE WAS AT WORK THIS MORNING WHEN HER BODY STARTED FEELING FUNNY AND SHE FELT LIKE SHE WAS GOING TO PASS OUT. She did not pass out and her symptoms passed after a moment, but she left work over it. Related Data Home Medications Medication Instructions Recorded Confirmed aripiprazole 5 mg tablet 5 mg PO DAILY Depression 02/05/23 02/05/23 escitalopram oxalate 20 mg tablet 20 mg PO DAILY Depression 02/05/23 02/05/23 norethindrone 1 mg-ethinyl 1 tab PO DAILY control 02/05/23 02/05/23 estradiol 20 mcg (21)-iron 75 mg (7) tablet Allergies Allergy/AdvReac Type Severity Reaction Status Date / Time cefdinir [CEFDINIR] Allergy Intermediate Verified 11/25/22 10:57 amoxicillin Allergy Verified 11/25/22 10:57 clavulanic acid Allergy Verified 11/25/22 10:57 [From Augmentin] Worker's Comp Is this a Worker's Comp case?: No [facility] Disclaimer: The information contained in this section may have been updated after the patient was seen, as this information can be updated by other users. Medical History Anxiety Bipolar II disorder Depression Family History Grandmother FHx: mental illness Grandmother FHx: mental illness Father FHx: mental illness Hypertension Social History Smoking Status: Current every day smoker tobacco type: e-cigarettes second hand exposure: No alcohol intake: current counseling given: No substance use type: marijuana counseling given: No (she does this rarely and sporadically ) current occupational status: unemployed and other details: recently got fired for missing work Travel in the last 8 weeks: None adopted: No caregiver/support person: No foster care: No household members: significant other housing: apartment lives independently: Yes marital status: number of children: 0 number of grandchildren: 0 education level: high school service: No half-way: No current occupational exposures/hazards: No pets and animals: Yes pets and animals: hamster(s) and other details: bearded dragons; gecko Hx Recent Travel: No sexually active: Yes are you practicing safe sex: Yes caffeine: No physical activity: none anusha/jewish: Other
[2023-02-05 12:19] VITALS: BP 124/69; BP 129/68; BP 129/79; PULSE 80; PULSE 97; PULSE 99
[2023-02-05 12:32] VITALS: BP 132/86; PULSE 94; RESP 20; TEMP 37.1; O2SAT 100
== END 2023-02-05 12:35 | disposition home or self-care (01) ==
PROVIDERS: Emergency Provider Nurse Practitioner Family
DX: R55 Syncope and collapse (principal); R94.31 Abnormal electrocardiogram [ECG] [EKG]; F17.290 Nicotine dependence, other tobacco product, uncomplicated; F31.81 Bipolar II disorder; F41.9 Anxiety disorder, unspecified
CPT/HCPCS: 93005; 99212; 99214; G0463

== ENCOUNTER 2023-02-10 19:52 | Emergency (ER) | payer BC, SELFPAY ==
[2023-02-10 19:53] VITALS: BP 127/82; PULSE 85; RESP 18; TEMP 36.6; O2SAT 100; BMI 34.9
[2023-02-10 20:51] LABS: Basophils % 0.4 % (0.1-2.0); Eosinophils # 0.2 K/mm3 (0.0-0.4); Eosinophils % 2.4 % (0.1-12.0); Hematocrit 37.5 % (37.0-47.0); Hemoglobin 12.2 g/dL (12.2-16.2); Lymphocytes # 3.2 K/mm3 (0.7-4.5); Lymphocytes % 32.2 % (10-50); Mean Corpuscular HGB Conc 32.6 g/dL (31.8-35.4); Mean Corpuscular Hemoglobin 29.4 pg (27.0-31.2); Mean Corpuscular Volume 90.4 fl (81-99); Mean Platelet Volume 8.2 fl (7.4-10.4); Monocytes # 0.5 K/mm3 (0.1-1.0); Monocytes % 5.1 % (1.7-9.3); Neutrophils % 59.9 % (37.0-80.0); Platelet Count 359 K/mm3 (142-424); Red Blood Count 4.15 M/mm3 (4.20-5.40); Red Cell Distribution Width 12.8 % (11.5-17.5)
[2023-02-10 20:55] VITALS: BP 121/75; BP 122/78; BP 122/80
[2023-02-10 20:56] LABS: HCG Qualitative, Serum Negative (Negative)
[2023-02-10 20:58] LABS: Alanine Aminotransferase 20 U/L (12-78); Albumin Level 4.4 g/dl (3.5-5.0); Albumin/Globulin Ratio 1.3 (1.1-1.8); Alkaline Phosphatase 68 U/L (38-126); Anion Gap 16.7 mEq/L (5-15); Aspartate Amino Transferase 25 U/L (14-36); Bilirubin,Total 0.2 mg/dl (0.2-1.3); Blood Urea Nitrogen 10 mg/dl (7-17); Calcium 8.9 mg/dl (8.4-10.2); Carbon Dioxide 26 mmol/L (22.0-30.0); Chloride 104 mmol/L (98-107); Creatinine Clearance Estimated 164 mL/min (50-200); Estimated Glomerular Filt Rate 103 ml/min (>60); GFR (African American) 124 ML/MIN (>60); Globulin 3.4 g/dL (1.3-3.2); Glucose 73 mg/dl (74-100); Potassium 3.7 mmoL/L (3.5-5.1); Sodium 143 mmol/L (136-145); Total Protein,Serum 7.8 g/dl (6.3-8.2)
[2023-02-10 20:58] LABS: Magnesium 1.8 mg/dl (1.6-2.3)
[2023-02-10 21:04] LABS: C-Reactive Protein 15.3 mg/L (0-4)
[2023-02-10 21:06] LABS: Microscopic, Urine URINE MICROSCOPIC (MICROSCOPIC)
[2023-02-10 21:12] LABS: Appearance,Urine SL CLOUDY (Clear); Bilirubin,Urine Negative (Negative); Blood, Urine 3+ (Negative); Color,Urine ORANGE (Yellow); Glucose,Urine (UA) Negative (Negative); Ketones,Urine Negative (Negative); Leukocyte Esterase,Urine Negative (Negative); Nitrate,Urine Negative (Negative); PH,Urine 5.5 (5.0-8.5); Protein,Urine 1+ (Negative); Specific Gravity, Urine >= 1.030 (1.005-1.030)
[2023-02-10 21:18] LABS: Free T4 (Free Thyroxine) 1.19 ng/dl (0.78-2.19)
[2023-02-10 21:24] LABS: Procalcitonin < 0.030 ng/mL (0.0-2.0)
[2023-02-10 21:25] LABS: Bacteria,Urine Trace /lpf; RBC,Urine 20-50 #/hpf (0-3); WBC,Urine Occasional #/hpf (0-3)
[2023-02-10 21:30] VITALS: BP 112/70; PULSE 80; RESP 18; O2SAT 100
--- NOTE | 2023-02-10 21:46 | HMH.EDDIZZ ---
Discharge Plan Disposition Patient Disposition: Home, Self-Care Chief Complaint: Dizziness Prescriptions Prescriptions: No Action norethindrone-e.estradiol-iron 1 mg-20 mcg (21)/75 mg (7) tablet 1 tab PO DAILY Label Comments: TAKE 1 TABLET 1 TIME EACH DAY FOR CONTROL escitalopram oxalate 20 mg tablet 20 mg PO DAILY Label Comments: TAKE 1 TABLET 1 TIME EACH DAY aripiprazole 5 mg tablet 5 mg PO DAILY Label Comments: TAKE 1 TABLET 1 TIME EACH DAY AT BEDTIME Referrals Follow up/Referrals: Provider,Referral, MD [Primary Care Provider] - See instructions Clinical Impressions Clinical Impression: Dizziness, Elevated erythrocyte sedimentation rate Instructions Patient Instructions: Dizziness, Nonvertigo Discharge ED Provider: Violet (ED),Romero Sheppard HPI General Chief Complaint: Dizziness Stated Complaint: headache,weakness Time Seen by Provider: 02/10/23 21:05 Mode of Arrival: Wheelchair Source of Information: Patient, Significant Other and Medical Record Limitations: No Limitations Description of Symptoms (Recalled from ER Triage Doc. by RN): Pt states she has had a headache, nausea and episodes of dizziness today. This evening when she took a shower she felt like she was going to pass out. Pt states she had similar event 1 week ago and was diagnosed with dehydration. History of Present Illness HPI Narrative: for about 1 hr was dizzy and felt faint but did not pass out - had similar episode 2 weeks ago - no fever or cough and no gu sx - no trauma/fever or rash complaint: dizziness and near syncope Onset (ago): hour(s) Timing: sudden onset Description: lightheadedness History of similar episodes: Yes History of trauma: No Severity: moderate Related Data Home Medications Medication Instructions Recorded Confirmed aripiprazole 5 mg tablet 5 mg PO DAILY Depression 02/05/23 02/10/23 escitalopram oxalate 20 mg tablet 20 mg PO DAILY Depression 02/05/23 02/10/23 norethindrone 1 mg-ethinyl 1 tab PO DAILY control 02/05/23 02/10/23 estradiol 20 mcg (21)-iron 75 mg (7) tablet Allergies Allergy/AdvReac Type Severity Reaction Status Date / Time cefdinir [CEFDINIR] Allergy Intermediate Verified 11/25/22 10:57 amoxicillin Allergy Verified 11/25/22 10:57 clavulanic acid Allergy Verified 11/25/22 10:57 [From Augmentin] PFS PFSH Disclaimer: The information contained in this section may have been updated after the patient was seen, as this information can be updated by other users. Medical History Anxiety Bipolar II disorder Depression Family History Grandmother FHx: mental illness Grandmother FHx: mental illness Father FHx: mental illness Hypertension Social History Smoking Status: Current every day smoker tobacco type: e-cigarettes second hand exposure: No alcohol intake: current counseling given: No substance use type: marijuana counseling given: No (she does this rarely and sporadically ) current occupational status: unemployed and other details: recently got fired for missing work Travel in the last 8 weeks: None adopted: No caregiver/support person: No foster care: No household members: significant other housing: apartment lives independently: Yes marital status: number of children: 0 number of grandchildren: 0 education level: high school service: No prison: No current occupational exposures/hazards: No pets and animals: Yes pets and animals: hamster(s) and other details: bearded dragons; gecko Hx Recent Travel: No sexually active: Yes are you practicing safe sex: Yes caffeine: No physical activity: none anusha/latter-day: Other special anusha needs: Yes (she is [employer]) working smoke detector i
[2023-02-10 22:00] VITALS: BP 114/85; PULSE 74; RESP 20; O2SAT 99
[2023-02-10 22:15] LABS: Erythrocyte Sedimentation Rate 133 mm/hr (0-20)
[2023-02-10 22:46] VITALS: BP 118/72; PULSE 71; RESP 18; TEMP 36.6; O2SAT 99
--- NOTE | 2023-02-11 21:15 | PC.NURSE ---
medical records faxed to [facility].
== END 2023-02-10 22:53 | disposition home or self-care (01) ==
PROVIDERS: Emergency Provider Emergency Medicine
DX: R42 Dizziness and giddiness (principal); R51.9 Headache, unspecified; R53.1 Weakness; R70.0 Elevated erythrocyte sedimentation rate; F31.81 Bipolar II disorder; F41.9 Anxiety disorder, unspecified
CPT/HCPCS: 80053; 81001; 83735; 84145; 84439; 84443; 84703; 85025; 85651; 86140; 96360; 99284; 99285

== ENCOUNTER 2023-04-21 23:17 | Emergency (ER) | payer BC, SELFPAY ==
[2023-04-21 23:18] VITALS: BP 128/75; PULSE 69; RESP 16; TEMP 36.6; O2SAT 99; BMI 40.6
--- NOTE | 2023-04-21 23:20 | ECG_ITS ---
APPROVED REPORT Exam: Resting ECG HR:61 bpm ECG Measurements Heart Rate 61 AXES AL 152 P 45 QRSd 99 QRS 52 QT 395 T 13 QTc 398 Conclusion SINUS RHYTHM WITH SINUS ARRHYTHMIA NONSPECIFIC ST & T-WAVE ABNORMALITY BORDERLINE ECG UNCONFIRMED REPORT Electronically signed by : Kane Santiago MD 04/23/2023 20:02:27
[2023-04-21 23:31] VITALS: BP 112/61; PULSE 64; RESP 22; O2SAT 100
--- NOTE | 2023-04-21 23:47 | HMH.EDGENADL ---
Discharge Plan Disposition Patient Disposition: Home, Self-Care Condition: Good Prescriptions Prescriptions: No Action norethindrone-e.estradiol-iron 1 mg-20 mcg (21)/75 mg (7) tablet 1 tab PO DAILY Qty: 84 0RF promethazine 12.5 mg tablet 12.5 mg PO TID Qty: 90 0RF Rx Instructions: may take 2 tablets (25mg) at bedtime Vraylar 1.5 mg capsule 1.5 mg PO DAILY Qty: 30 1RF escitalopram oxalate 20 mg tablet 20 mg PO DAILY Qty: 30 1RF Referrals Follow up/Referrals: Provider,Referral, MD [Primary Care Provider] - See instructions Activity Restrictions/Add. Instructions Additional Instructions/Restrictions: Please follow-up with your primary care provider. Please return to the emergency department if you develop any new or worsening symptoms or become concerned for your health. Clinical Impressions Clinical Impression: Chest pain Qualifiers: Chest pain type: precordial pain Qualified Code(s): R07.2 - Precordial pain Stand Alone Forms Stand Alone Forms: Work/School Release Discharge ED Provider: Ghassan Fowler Adult HPI General Chief complaint: Chest Pain Stated complaint: cp Time Seen by Provider: 04/21/23 23:44 Mode of Arrival: Ambulatory Source of Information: Patient Limitations: No Limitations Description of Symptoms (Recalled from ER Triage Doc. by RN): pt states that she was working and at 830 pm she started having chest pain she was seen at [facility] ER and a 12 lead was preformed and they directed her to the Emergency Room History of Present Illness HPI narrative: 22-year-old female presents after onset of chest pain at work. She reports that it started around 8:30 PM, with centrally located, was throbbing in nature, worse with palpation. She reports that the like this is happened before. Pain improved spontaneously prior to arrival. She was seen in the ER at the [employer] she works at where a twelve-lead was performed but was reportedly normal. She is on oral contraceptives. She denies any active chest pain shortness of breath dizziness fatigue abdominal pain nausea vomiting diarrhea. Related Data Previous Rx's Medication Instructions Recorded norethindrone 1 mg-ethinyl 1 tab PO DAILY control #84 03/03/23 estradiol 20 mcg (21)-iron 75 mg tabs (7) tablet promethazine 12.5 mg tablet 12.5 mg PO TID #90 tabs 03/16/23 cariprazine 1.5 mg capsule 1.5 mg PO DAILY #30 caps 03/23/23 (Vraylar) escitalopram oxalate 20 mg tablet 20 mg PO DAILY Depression #30 tabs 03/23/23 Allergies Allergy/AdvReac Type Severity Reaction Status Date / Time cefdinir [CEFDINIR] Allergy Intermediate Verified 04/06/23 13:45 amoxicillin Allergy Verified 04/06/23 13:45 clavulanic acid Allergy Verified 04/06/23 13:45 [From Augmentin] [facility] Disclaimer: The information contained in this section may have been updated after the patient was seen, as this information can be updated by other users. Medical History Anxiety Bipolar II disorder Depression Surgical History Previous back surgery [place] teeth extracted Family History Grandmother FHx: mental illness schizophrenia anxiety Grandmother FHx: mental illness bipolar depression anxiety Father FHx: mental illness anger issues Hypertension Social History Smoking Status: Smoker, status unknown tobacco type: e-cigarettes second hand exposure: No alcohol intake: current counseling given: No substance use type: marijuana counseling given: No (she does this rarely and sporadically ) current occupational status: unemployed and other details: recently got fired for missing work Travel in the last 8 weeks: None adopted: No caregiver/support perso
[2023-04-22 00:06] LABS: Basophils % 0.4 % (0.1-2.0); Eosinophils # 0.2 K/mm3 (0.0-0.4); Eosinophils % 2.1 % (0.1-12.0); Hematocrit 39.8 % (37.0-47.0); Hemoglobin 13.7 g/dL (12.2-16.2); Lymphocytes # 3.5 K/mm3 (0.7-4.5); Lymphocytes % 30.8 % (10-50); Mean Corpuscular HGB Conc 34.4 g/dL (31.8-35.4); Mean Corpuscular Hemoglobin 30.4 pg (27.0-31.2); Mean Corpuscular Volume 88.4 fl (81-99); Mean Platelet Volume 8.1 fl (7.4-10.4); Monocytes # 0.6 K/mm3 (0.1-1.0); Monocytes % 5.1 % (1.7-9.3); Neutrophils # 6.9 K/mm3 (1.8-7.8); Neutrophils % 61.7 % (37.0-80.0); Platelet Count 333 K/mm3 (142-424); Red Blood Count 4.51 M/mm3 (4.20-5.40); Red Cell Distribution Width 12.7 % (11.5-17.5); White Blood Count 11.3 K/mm3 (4.8-10.8)
[2023-04-22 00:07] LABS: Chloride 102 mmol/L (98-107); Sodium 140 mmol/L (136-145)
[2023-04-22 00:11] LABS: Alanine Aminotransferase 20 U/L (12-78); Albumin Level 4.4 g/dl (3.5-5.0); Albumin/Globulin Ratio 1.1 (1.1-1.8); Alkaline Phosphatase 90 U/L (38-126); Aspartate Amino Transferase 29 U/L (14-36); Bilirubin,Total 0.3 mg/dl (0.2-1.3); Blood Urea Nitrogen 11 mg/dl (7-17); Calcium 9.8 mg/dl (8.4-10.2); Carbon Dioxide 26 mmol/L (22.0-30.0); Creatinine Clearance Estimated 191 mL/min (50-200); Estimated Glomerular Filt Rate 103 ml/min (>60); GFR (African American) 124 ML/MIN (>60); Globulin 3.9 g/dL (1.3-3.2); Glucose 85 mg/dl (74-100); Total Protein,Serum 8.3 g/dl (6.3-8.2)
[2023-04-22 00:20] LABS: HCG Qualitative, Serum Negative (Negative)
[2023-04-22 00:23] VITALS: BP 99/62; PULSE 68; RESP 18; TEMP 36.6; O2SAT 99
== END 2023-04-22 00:31 | disposition home or self-care (01) ==
PROVIDERS: Emergency Provider Emergency Medicine
DX: R07.2 Precordial pain (principal); F31.81 Bipolar II disorder; F41.9 Anxiety disorder, unspecified
CPT/HCPCS: 80053; 84703; 85025; 85378; 93005; 99285

== ENCOUNTER 2023-05-10 18:53 | Emergency (ER) | payer BC, SELFPAY ==
[2023-05-10 20:00] VITALS: BP 130/75; PULSE 74; RESP 18; TEMP 36.8; O2SAT 100; BMI 40.4
[2023-05-10 20:44] LABS: UTC Strep Screen (Rapid) Negative (Negative)
--- NOTE | 2023-05-10 20:55 | EXP.UTC ---
Discharge Plan Disposition Patient Disposition: Home, Self-Care Condition: Good Prescriptions Prescriptions: New loratadine 10 mg tablet 10 mg PO DAILY PRN (Reason: allergy symptoms) Qty: 30 0RF No Action norethindrone-e.estradiol-iron 1 mg-20 mcg (21)/75 mg (7) tablet 1 tab PO DAILY Qty: 84 0RF escitalopram oxalate 20 mg tablet 20 mg PO DAILY Qty: 30 1RF omeprazole 20 mg capsule,delayed release(DR/EC) 20 mg PO DAILY Vraylar 1.5 mg capsule 1.5 mg PO DAILY Referrals Follow up/Referrals: Violette Thompson APRN [Primary Care Provider] - See instructions Clinical Impressions Clinical Impression: Upper respiratory infection Qualifiers: URI type: unspecified viral URI Qualified Code(s): J06.9 - Acute upper respiratory infection, unspecified Instructions Patient Instructions: DI for Viral Upper Respiratory Infection -- Adult Discharge ED Provider: Ayse Browne [facility] General Stated complaint: Sore throat,Cough,Congestion Mode of Arrival: Ambulatory Source of Information: Patient Limitations: No Limitations Time Seen by Provider: 05/10/23 20:50 Description of Symptoms (Recalled from Triage Doc. by RN): sore throat, dry cough, and sinus congestion HEENT Symptoms (Recalled from RN notes): Yes Resp Symptoms (Recalled from RN notes): No Skin Symptoms (Recalled from RN notes): No MS Symptoms (Recalled from RN notes): No Functional Status (Recalled from RN notes): n/a History of Present Illness Provider Complaint: Pt relates that she has had sinus congestion, runny nose, cough, and sore throat since this morning. She states that she took a Benadryl. Related Data Home Medications Medication Instructions Recorded Confirmed cariprazine 1.5 mg capsule 1.5 mg PO DAILY . 05/10/23 05/10/23 (Vraylar) omeprazole 20 mg capsule,delayed 20 mg PO DAILY gerd 05/10/23 05/10/23 release Previous Rx's Medication Instructions Recorded norethindrone 1 mg-ethinyl 1 tab PO DAILY control #84 03/03/23 estradiol 20 mcg (21)-iron 75 mg tabs (7) tablet escitalopram oxalate 20 mg tablet 20 mg PO DAILY Depression #30 tabs 03/23/23 loratadine 10 mg tablet 10 mg PO DAILY PRN allergy 05/10/23 symptoms #30 tabs Allergies Allergy/AdvReac Type Severity Reaction Status Date / Time cefdinir [CEFDINIR] Allergy Intermediate Verified 04/22/23 14:32 amoxicillin Allergy Verified 04/22/23 14:32 clavulanic acid Allergy Verified 04/22/23 14:32 [From Augmentin] Worker's Comp Is this a Worker's Comp case?: No [facility] Disclaimer: The information contained in this section may have been updated after the patient was seen, as this information can be updated by other users. Medical History Anxiety Bipolar II disorder Depression Surgical History Previous back surgery [place] teeth extracted Family History Grandmother FHx: mental illness schizophrenia anxiety Grandmother FHx: mental illness bipolar depression anxiety Father FHx: mental illness anger issues Hypertension Social History Smoking Status: Smoker, status unknown tobacco type: e-cigarettes second hand exposure: No alcohol intake: current counseling given: No substance use type: marijuana counseling given: No (she does this rarely and sporadically ) current occupational status: unemployed and other details: recently got fired for missing work Travel in the last 8 weeks: None adopted: No caregiver/support person: No foster care: No household members: significant other housing: apartment lives independently: Yes marital status: number of children: 0 number of grandchildren: 0 education level: high school service: No kamron
[2023-05-10 21:00] VITALS: BP 130/75; PULSE 74; RESP 18; TEMP 36.8; O2SAT 100
== END 2023-05-10 21:00 | disposition home or self-care (01) ==
PROVIDERS: Emergency Provider Nurse Practitioner Family; PCP Nurse Practitioner
DX: J06.9 Acute upper respiratory infection, unspecified (principal); B34.9 Viral infection, unspecified; F17.210 Nicotine dependence, cigarettes, uncomplicated; F41.9 Anxiety disorder, unspecified; F31.81 Bipolar II disorder
CPT/HCPCS: 87880; 99212; 99214; G0463

== ENCOUNTER 2023-05-12 11:54 | Emergency (ER) | payer BC, SELFPAY ==
[2023-05-12 12:15] VITALS: BP 130/70; PULSE 78; RESP 19; TEMP 36.9; O2SAT 98; BMI 39.9
[2023-05-12 12:35] LABS: UTC Influenza A Antigen Negative (Negative); UTC Influenza B Antigen Negative (Negative)
--- NOTE | 2023-05-12 12:39 | EXP.UTC ---
Discharge Plan Disposition Patient Disposition: Home, Self-Care Condition: Good Prescriptions Prescriptions: New azithromycin [Zithromax Z-Allen] 250 mg tablet See Rx Instructions .ROUTE .COMPLEX 5 Days Qty: 6 0RF Rx Instructions: For 250 mg dose pack: take 500 mg today (day 1), then 250 mg for 4 days (days 2-5) benzonatate 100 mg capsule 100 mg PO TID PRN (Reason: cough) Qty: 30 0RF methylprednisolone [Medrol (Allen)] 4 mg tablets,dose pack See Rx Instructions .Route .COMPLEX 6 Days Qty: 21 0RF Rx Instructions: taper pack; No Action norethindrone-e.estradiol-iron 1 mg-20 mcg (21)/75 mg (7) tablet 1 tab PO DAILY Qty: 84 0RF escitalopram oxalate 20 mg tablet 20 mg PO DAILY Qty: 30 1RF omeprazole 20 mg capsule,delayed release(DR/EC) 20 mg PO DAILY Vraylar 1.5 mg capsule 1.5 mg PO DAILY loratadine 10 mg tablet 10 mg PO DAILY PRN (Reason: allergy symptoms) Qty: 30 0RF Referrals Follow up/Referrals: Provider,Referral, MD [Primary Care Provider] - See instructions Activity Restrictions/Add. Instructions Additional Instructions/Restrictions: *Monitor Temp, Over the counter Motrin or Tylenol as directed/as needed Tylenol every 4 hours and Motrin every 6 hours (as long as your family doctor has told you that you can take it) for fever or pain. and straight to ER if unable to lower temp less than 101.0 after medication given *Warm salt water gargles may help to soothe the throat *Throat Lozenges? *Warm fluids like tea with honey may help to soothe the throat? *Sleep elevated *Humidifier/Vaporizer Follow up IMMEDIATELY for new or worsening symptoms or no Noticeable improvement over the next 48-72 hours. 911 for difficulty breathing or swallowing You were tested for today for Upper Respiratory Panel with COVID19 your test result should be back in the next 24 hours Your results will be available for viewing on your [facility] if you are positive you will need to Quarantine for 5 days Clinical Impressions Clinical Impression: Sinusitis Qualifiers: Sinusitis location: unspecified location Chronicity: unspecified Qualified Code(s): J32.9 - Chronic sinusitis, unspecified Stand Alone Forms Stand Alone Forms: Work/School Release Instructions Patient Instructions: DI for Sinusitis, Sinusitis Discharge ED Provider: Mali Martin [facility] HPI General Stated complaint: cough,sneezing,nausea,headache Mode of Arrival: Ambulatory Source of Information: Patient Limitations: No Limitations Time Seen by Provider: 05/12/23 12:39 Description of Symptoms (Recalled from Triage Doc. by RN): PATIENT C/O SORE THROAT, HEADACHE, AND PRODUCTIVE COUGH SINCE THURSDAY HEENT Symptoms (Recalled from RN notes): Yes Resp Symptoms (Recalled from RN notes): Yes Skin Symptoms (Recalled from RN notes): No MS Symptoms (Recalled from RN notes): No Functional Status (Recalled from RN notes): WNL History of Present Illness Provider Complaint: Patient states that she started feeling bad on Thursday States that she has been having nasal congsetion drainage in the back of her throat, scratchy throat and headache States that she feels like she may have COVID or flu States that she does have a cough and at times coughing up mucous Related Data Home Medications Medication Instructions Recorded Confirmed cariprazine 1.5 mg capsule 1.5 mg PO DAILY . 05/10/23 05/10/23 (Vraylar) omeprazole 20 mg capsule,delayed 20 mg PO DAILY gerd 05/10/23 05/10/23 release Previous Rx's Medication Instructions Recorded norethindrone 1 mg-ethinyl 1 tab PO DAILY control #84 03/03/23 estradiol 20 mcg (21)-iron 75 mg tabs (7) tablet escitalopram oxalate 20 mg tablet 20 mg PO DAILY Depression #30 tabs 03/23/23 loratadine 10 mg tablet 10 mg PO DAILY PRN allergy 05/10/23 symptoms #30 tabs azithromycin 250 mg tablet See Rx Instructions PO .COMPLEX 5
[2023-05-12 12:48] VITALS: BP 130/70; PULSE 78; RESP 19; TEMP 36.9; O2SAT 98
== END 2023-05-12 12:50 | disposition home or self-care (01) ==
PROVIDERS: Emergency Provider Nurse Practitioner
DX: J01.90 Acute sinusitis, unspecified (principal); F17.290 Nicotine dependence, other tobacco product, uncomplicated
CPT/HCPCS: 87635; 87804; 99212; 99214; G0463

== ENCOUNTER 2024-01-02 20:33 | Emergency (ER) | payer MEDICAID, SELFPAY ==
[2024-01-02 21:10] VITALS: BP 142/96; PULSE 63; RESP 16; TEMP 36.8; O2SAT 100; BMI 43.4
[2024-01-02] MEDS: IBUPROFEN 600 MG TABLET PO (21:40)
--- NOTE | 2024-01-02 21:46 | [facility].EDGENADL ---
Discharge Plan Disposition Patient Disposition: Home, Self-Care Prescriptions Prescriptions: New methocarbamol 500 mg tablet 1,000 mg PO Q8H PRN (Reason: muscle pain and spasm) Qty: 24 0RF No Action norethindrone-e.estradiol-iron 1 mg-20 mcg (21)/75 mg (7) tablet See Rx Instructions .ROUTE .COMPLEX Qty: 84 3RF Dose Instruction: TAKE 1 TABLET 1 TIME EACH DAY FOR CONTROL Rx Instructions: TAKE 1 TABLET 1 TIME EACH DAY FOR CONTROL escitalopram oxalate 20 mg tablet 20 mg PO DAILY Qty: 30 3RF omeprazole 20 mg capsule,delayed release(DR/EC) 20 mg PO DAILY Referrals Follow up/Referrals: Jose A Albarado MD [Primary Care Provider] - See instructions Activity Restrictions/Add. Instructions Additional Instructions/Restrictions: At this time it was felt you are safe to be discharged home. If new or worsening symptoms please do not hesitate to return the emergency department. If symptoms persist please follow-up with your family doctor as you are able. Please take Tylenol and ibuprofen for pain as well as your medication as prescribed. Clinical Impressions Clinical Impression: Acute strain of neck muscle Instructions Patient Instructions: DI for Neck Pain Discharge ED Provider: Chad Glez General Adult HPI General Chief complaint: Neck Pain/Injury Stated complaint: neck/shoulder pain, no accident Time Seen by Provider: 01/02/24 21:00 Mode of Arrival: Ambulatory Source of Information: Patient Limitations: No Limitations Description of Symptoms (Recalled from ER Triage Doc. by RN): 23 yo female presents with CC of neck pain radiating down into both shoulders upon awakening this morning. Patient states she lifted a 100lb + metal grate yesterday/denies abnormal movements. Additionally, states she has had no previous history of issues with her neck. Able to rotate neck from left to right but pain is 10+ and she is now tearful. History of Present Illness HPI narrative: Patient is a 23-year-old female with no pertinent past medical history who presents emergency department for evaluation of neck pain. Patient lifted approximately 100 pound great over her shoulder last night with both arms and has had lateral neck pain on both sides since this morning. It is worse when she lifts her arms up over her head. No other acute complaints at this time. No urinary or bowel incontinence. No focal weakness. No midline pain. Related Data Home Medications Medication Instructions Recorded Confirmed omeprazole 20 mg capsule,delayed 20 mg PO DAILY gerd 05/10/23 01/02/24 release Previous Rx's Medication Instructions Recorded norethindrone 1 mg-ethinyl See Rx Instructions .Route 08/27/23 estradiol 20 mcg (21)-iron 75 mg .COMPLEX #84 tabs (7) tablet escitalopram oxalate 20 mg tablet 20 mg PO DAILY Depression #30 tabs 10/05/23 methocarbamol 500 mg tablet 1,000 mg (2 x 500 mg) PO Q8H PRN 01/02/24 muscle pain and spasm #24 tabs Allergies Allergy/AdvReac Type Severity Reaction Status Date / Time cefdinir [CEFDINIR] Allergy Intermediate Verified 08/11/23 09:51 amoxicillin Allergy Verified 08/11/23 09:51 clavulanic acid Allergy Verified 08/11/23 09:51 [From Augmentin] [facility] Disclaimer: The information contained in this section may have been updated after the patient was seen, as this information can be updated by other users. Medical History (Updated 01/02/24 @ 21:48 by Chad Glez MD) Bipolar II disorder Depression Anxiety Surgical History Cascade teeth extracted Previous back surgery Family History Grandmother FHx: mental illness schizophrenia anxiety Grandmother FHx: mental illness bipolar depression anxiety Father FHx: mental illness anger issues Hypertension Social History Smoking Status: Unknown if ever smoked second hand exposure: No alcohol intake: current alcohol intake frequency: holidays/special occasions only counseling given: No substance use type: marijuana counseling given: No (she does this rarely and sporadically ) current occupational status: unemployed and other details: recently got fired for missing work Travel in the last 8 weeks: None adopted: No caregiver/support person: No foster care: No household members: significant other housing: apartment lives independently: Yes marital status: number of children: 0 number of grandchildren: 0 education level: high school service: No alf: No current occupational exposures/hazards: No pets and animals: Yes pets and animals: hamster(s) and other details: bearded dragons; gecko Hx Recent Travel: No sexually active: Yes are you practicing safe sex: Yes caffeine: No physical activity: none anusha/taoism: Other special anusha needs: Yes (she is [employer]) working smoke detector in home: Yes fire extinguisher in home: Yes carbon monox detector in home: Yes firearms in home: No do you feel safe at home: Yes victim of physical abuse: No victim of emotional abuse: No victim of sexual abuse: No would you like helpful sources: No ROS Obtained: Yes Systems reviewed as appropriate & no additional complaints except as documented Physical Exam General General appearance: alert and in no apparent distress Head Head exam: atraumatic and normocephalic Eye Eye exam: Present PERRL and EOMI ENT ENT exam: Present mucous membranes moist Neck Neck exam: Present normal inspection and tenderness (Lateral tenderness along the trapezius bilaterally, no midline tenderness. Patient is able to range her neck 45 degrees in both directions.) Chest Chest inspection: Present normal inspection and symmetric chest wall rise Respiratory Respiratory exam: Absent respiratory distress Cardiovascular Cardiovascular exam: Present regular rate and normal rhythm Abdominal Exam Abdominal exam: Present soft Extremities Exam Extremities exam: Present normal inspection Neurological Exam Neurological exam: Present alert and CN II-XII intact; Absent motor sensory deficit Psychiatric Psychiatric exam: Present normal affect Skin Skin exam: Present warm and dry Medical Decision Making Kwame Inquiry Pt receiving controlled substance: No Vital Signs: 01/02/24 21:10 Temperature 98.2 F Temperature Source Oral Pulse Rate [Right Brachial] 63 Respiratory Rate 16 Blood Pressure [Right Arm] 142/96 H Blood Pressure Mean [Right Arm] 111 Blood Pressure Source [Right Arm] Automatic Cuff Blood Pressure Position [Right Arm] Sitting 02 Sat by Pulse Oximetry 100 Oxygen Delivery Method Room Air Orders (Tests/Meds): ED MEDICATIONS Discontinued Medications Generic Name Dose Route Start Last Admin Trade Name Freq PRN Reason Stop Dose Admin Acetaminophen 1,000 mg 01/02/24 21:45 01/02/24 21:55 Acetaminophen 500mg Tab PO 01/02/24 21:46 1,000 mg ONCE ONE Administration Ibuprofen 600 mg 01/02/24 21:16 01/02/24 21:40 Ibuprofen 600 Mg Tablet PO 01/02/24 21:17 600 mg ONCE ONE Administration Methocarbamol 1,000 mg 01/02/24 21:45 01/02/24 21:55 Methocarbamol 500mg Tablet PO 01/02/24 21:46 1,000 mg ONCE ONE Administration Medical Decision Narrative: In summary patient is a 23-year-old female past medical history described above who presents emergency department for evaluation of neck pain. Patient is hemodynamically stable nontoxic-appearing upon arrival, afebrile. History and physical exam is consistent with musculoskeletal strain of the neck muscles on the lateral aspect, given that range of motion is worse when elbow is above 90 degrees I suspect bilateral trapezius strain. No midline tenderness or other red flags to warrant imaging although was considered will be deferred. Initial inventions include Tylenol, ibuprofen, methocarbamol. Upon repeat evaluation patient had persistent pain for which it was felt reasonable to give a single dose of oxycodone. I do not feel that patient has any [employer]CHIT[employer] process or spinal cord compression that would warrant workup or labs or imaging at this time. Given this patient is appropriate for discharge will be discharged with a course of methocarbamol will follow-up on an outpatient basis and was given return precautions. Critical Care Critical Care Time Critical Care Time: No
[2024-01-02] MEDS: METHOCARBAMOL 500MG TABLET 1000 MG PO (21:55)
[2024-01-02] MEDS: ACETAMINOPHEN 500MG TAB 1000 MG PO (21:55)
[2024-01-02 21:58] VITALS: BP 149/75; PULSE 72; O2SAT 100
[2024-01-02 22:00] VITALS: BP 156/130; PULSE 88; O2SAT 99
[2024-01-02 22:31] VITALS: BP 210/183; PULSE 64; O2SAT 98
[2024-01-02] MEDS: OXYCODONE 5MG IMMEDIATE RELEASE TABLET 5 MG PO (22:39)
[2024-01-02 23:01] VITALS: BP 113/75; O2SAT 89
[2024-01-02 23:19] VITALS: BP 113/75; PULSE 74; RESP 18; TEMP 36.8; O2SAT 98
== END 2024-01-02 23:21 | disposition home or self-care (01) ==
PROVIDERS: Emergency Provider Emergency Medicine; PCP Family Medicine
DX: S16.1XXA Strain of muscle, fascia and tendon at neck level, initial encounter (principal); X50.0XXA Overexertion from strenuous movement or load, initial encounter
CPT/HCPCS: 99283

== ENCOUNTER 2024-06-17 10:43 | Outpatient (CLI) | payer BC, SELFPAY ==
[2024-06-17 16:24] LABS: Microscopic, Urine URINE MICROSCOPIC (MICROSCOPIC)
[2024-06-17 16:43] LABS: Appearance,Urine CLEAR (Clear); Bilirubin,Urine Negative (Negative); Blood, Urine Negative (Negative); Color,Urine YELLOW (Yellow); Glucose,Urine (UA) Negative (Negative); Ketones,Urine Negative (Negative); Leukocyte Esterase,Urine Negative (Negative); Nitrate,Urine Negative (Negative); PH,Urine 5.5 (5.0-8.5); Protein,Urine Negative (Negative); Urobilinogen,Urine 0.2 EU/dl (0.2)
[2024-06-17 17:43] LABS: Bacteria,Urine 2+ /lpf
[2024-06-20 21:09] LABS: Neisseria gonorrhoeae, NAA Negative (Negative)
[2024-07-13 08:35] LABS: Trichomonas Vaginalis, NAA NEGATIVE
== END 2024-06-17 23:59 | disposition home or self-care (01) ==
LOC: LAB.DROPOF 06-20 10:43
PROVIDERS: PCP Family Medicine; Visit Provider Family Medicine
DX: N89.8 Other specified noninflammatory disorders of vagina (principal)
CPT/HCPCS: 81001; 87086; 87491; 87591; 87661